=== PATIENT | male | born 1970 | race Hispanic/Latino ===

== ENCOUNTER 2016-11-09 12:05 | Inpatient (IN) | payer OTHER ==
[~2016-11-09] VITALS: Ht 167.6 cm; Wt 104.3 kg
--- NOTE | 2016-11-09 10:45 | NUR ---
RECHECK BP 198/118; DR. ABHILASH ARAUJO NOTIFIED; PER MD RECHECK IN 30MINS AND NOTIFY MD IF STILL ELEVATED- REPORTED TO ON-COMING RN NOEL
[~2016-11-09 12:05] MED LIST: AMLODIPINE BESY10 M1 PO; COZAAR 100MG T100 MG PO; COZAAR100 M1 PO; LABETALOL HCL100 M1 PO; NORVASC 10MG10 MG PO; TRANDATE-NORMO100 MG PO; ZITHROMAX Z-PA250 M1 PO
--- NOTE | 2016-11-09 12:10 | NUR ---
46 Y/O MALE C/O HEADACHE SINCE YESTERDAY; STATES HE RAN OUT OF HIS B/P MEDS 1 MONTH AGO AND HAS NOT FOLLOWED UP WITH ANYONE TO REFILL SCRIPT. +N/V PER PATIENT.
--- NOTE | 2016-11-09 12:16 | NUR ---
RECIEVED TO ROOM 17. MANUAL B/P RECHECK DONE 240/120.
--- NOTE | 2016-11-09 12:17 | NUR ---
PT UNSURE OF WHAT MEDS HE WAS TAKING AT HOME FOR BLOOD PRESSURE, MED RECONCILIATION SHOWS LABETALOL 100 BID, LOSARTAN 100 BID AND AMLODIPINE 10 Q DAY
--- NOTE | 2016-11-09 12:35 | ED HEADACHE COMPLAINT ---
History of Present Illness General Chief Complaint: Headache Stated Complaint: DOE SINCE YES,PER PT "HIGH BP?,NO BP MEDS X 1 MNTH" Source: patient Exam Limitations: no limitations Vital Signs & Intake/Output Vital Signs & Intake/Output Vital Signs Date Time Temp Pulse Resp B/P B/P Pulse O2 O2 Flow FiO2 Mean Ox Delivery Rate 11/09 1746 97.2 74 16 164/96 97 Room Air 11/09 1647 96.9 71 16 160/92 98 Room Air 11/09 1550 89 190/110 11/09 1458 85 186/106 11/09 1429 97.0 85 16 186/106 98 Room Air 11/09 1358 79 200/100 11/09 1329 79 200/100 11/09 1256 77 240/120 11/09 1242 Room Air 11/09 1219 240/120 11/09 1208 97.2 77 16 232/151 96 Room Air Allergies Coded Allergies: NO KNOWN ALLERGIES (02/01/16) Reconcile Medications Amlodipine Besylate 10 MG TABLET 1 TAB PO DAILY HTN Labetalol HCl 100 MG TABLET 1 TAB PO BID HTN Losartan (Cozaar) 100 MG TABLET 1 TAB PO DAILY HTN Triage Note: 46 Y/O MALE C/O HEADACHE SINCE YESTERDAY; STATES HE RAN OUT OF HIS B/P MEDS 1 MONTH AGO AND HAS NOT FOLLOWED UP WITH ANYONE TO REFILL SCRIPT. +N/V PER PATIENT. Triage Nurses Notes Reviewed? yes Onset: Abrupt Duration: hour(s): Timing: single episode today Quality/Severity: moderate, constant, pressure Severity Numbers: 9 Head Injury Location: temporal, occipital No Modifying Factors: none Associated Symptoms: chest tightness HPI: 46-year-old male with a history of hypertension presents for evaluation of headache the past 2 days. Patient reports that he has not taken his blood pressure medication in over a month since he ran out. Headache started gradually 2 days ago and has been worsening. Patient states this is the worst headache of his life and his rates the pain as a 9 out of 10. Pain is located in the bilateral temporal and occipital part of his head and does not radiate. He is tried taking Tylenol without any improvement. Additionally patient reports associated chest tightness. Tightness is located in the center of his chest and does not radiate he rates pain as a 3 out of 10. He reports a chest tightness started around 10 AM this morning has not been worsening. There are no alleviating or aggravate factors. He denies hemoptysis, shortness of breath, changes in vision, nausea, vomiting, back pain, fever, urinary symptoms, abdominal pain. (DEMETRICE SINHA PA-C) Past History Travel History Traveled to [place] past 21 day No Medical History Any Pertinent Medical History? 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 Yes (DEMETRICE SINHA PA-C) Review of Systems Review of Systems Constitutional: Reports: no symptoms. Eyes: Reports: no symptoms. Ears, Nose, Throat, Mouth: Reports: no symptoms. Respiratory: Reports: no symptoms. Cardiovascular: Reports: see HPI, chest pain. Gastrointestinal/Abdominal: Reports: no symptoms. Genitourinary: Reports: no symptoms. Musculoskeletal: Reports: no symptoms. Skin: Reports: no symptoms. Neurological/Psychological: Reports: see HPI, headache. Hematologic/Endocrine: Reports: no symptoms. Endocrine: Reports: no symptoms. Immunologic/Allergic: Reports: no symptoms. All Other Systems: Reviewed and Negative (DEMETRICE SINHA PA-C) Physical Exam Physical Exam General Appearance: well developed/nourished, no apparent distress, alert, awake Head: atraumatic, normal appearance Eyes: Bilateral: normal appearance, PERRL, EOMI. Ears, Nose, Throat: normal pharynx, normal ENT inspection, hearing grossly normal Neck: normal inspection, supple, full range of motion Respiratory: normal breath sounds, chest non-tender, no respiratory distress, lungs clear Cardiovascular: regular rate/rhythm, normal peripheral pulses Gastrointestinal: normal bowel sounds, soft, non-tender, no organomegaly Back: normal inspection, normal range of motion, no vertebral tenderness Extremities: normal inspection, normal capillary refill, normal range of motion, no edema Psychiatric: awake, alert, oriented x 3 Cranial Nerves: normal hearing, normal speech, PERRL Coordination/Gait: normal finger to nose, normal gait Motor/Sensory: no motor/sensory deficits Skin: intact, normal color, warm/dry Lymphatic: no anterior cervical tree Core Measures Severe Sepsis Present: No Septic Shock Present: No (DEMETRICE SINHA PA-C) Progress Differential Diagnosis: cluster DOE, IC mass/tumor, intracranial Hem., migraine DOE, subarach. Hem., tension DOE, temporal arteritis, TMJ syndrome, hypertensive urgency Plan of Care: Orders Procedure Date/time Status Heart Healthy Diet 11/10 B Active TROPONIN LEVEL 11/09 232 Active EKG 11/09 232 Active Vital Signs 11/10 1911 Active Teach/Educate 11/10 1911 Active Pain Treatment and Response 11/10 1911 Active Nutritional Intake, Monitor 11/10 1911 Active Isolation 11/10 1911 Active Intake & Output 11/10 1911 Active Patient Care Conference 11/10 1911 Active Activity/Ambulation 11/09 191 Active ECHOCARDIOGRAM 11/09 1723 Active TROPONIN LEVEL 11/09 1722 Complete EKG 11/09 1722 Active Pathway - chart 11/09 1720 Active TRC EVALUATION (GEN) 11/09 1718 Active OXYGEN SETUP (GEN) 11/09 1718 Active Pathway - chart 11/09 1718 Active House Staff 11/09 1718 Active Patient Data 11/09 1718 Active Code Status 11/09 1718 Active ED Holding Orders 11/09 1702 Active Admit to inpatient 11/09 1702 Active Vital Signs 11/09 1702 Active Code Status 11/09 1702 Complete Patient Data 11/09 1554 Active Telemetry/Mirror Polisher 11/09 1227 Active URINALYSIS 11/09 1227 Complete TROPONIN LEVEL 11/09 1227 Complete COMPREHENSIVE METABOLIC PANEL 11/09 1227 Complete CBC WITHOUT DIFFERENTIAL 11/09 1227 Complete EKG 11/09 1227 Active Intake & Output 11/09 1218 Active VTE Mechanical Prophylaxis 11/09 UNK Active Vital Signs 11/09 UNK Active MISTAKE 11/09 UNK Active Telemetry/Mirror Polisher 11/09 UNK Active Intake & Output 11/09 UNK Active Current Medications Sig/Abe Start time Last Medication Dose Stop Time Status Admin Atorvastatin Calcium 40 MG 1700 11/10 1700 AC (Lipitor) Aspirin 81 MG DAILY 11/10 1000 AC (Aspirin) Labetalol HCl 100 MG BID 11/09 2200 AC (Trandate) Nitroglycerin 0.4 MG ONCE PRN 11/09 1800 AC (Nitrostat) Acetaminophen 650 MG Q6P PRN 11/09 1730 AC (Tylenol) Hydralazine HCl 2.5 MG ONCE ONE 11/09 1645 CAN (Apresoline) 11/09 1646 Hydralazine HCl 10 MG ONCE ONE 11/09 1630 CAN (Apresoline) 11/09 1631 Laboratory Tests 11/09/16 1748: Troponin I < 0.01 11/09/16 1538: Urine Color YEL, Urine Clarity CLEAR, Urine pH 6.5, Ur Specific [place] 1.020, Urine Protein 100 H, Urine Ketones NEG, Urine Nitrite NEG, Urine Bilirubin NEG, Urine Urobilinogen 0.2, Ur Leukocyte Esterase NEG, Ur Microscopic SEDIMENT EXAMINED, Urine RBC 10-15 H, Urine WBC 3-5 H, Ur Epithelial Cells FEW, Urine Bacteria FEW H, Urine Mucus FEW, Urine Hemoglobin TRACE-LYSED H, Urine Glucose NEG 11/09/16 1235: Anion Gap 12, Estimated GFR > 60, BUN/Creatinine Ratio 10.0, Glucose 103 H, Calcium 9.9, Total Bilirubin 0.7, AST 25, ALT 33, Alkaline Phosphatase 90, Troponin I < 0.01, Total Protein 8.0, Albumin 4.7, Globulin 3.3, Albumin/ Globulin Ratio 1.4, CBC w Diff NO MAN DIFF REQ, RBC 5.47, MCV 78.3 L, MCH 26.3 L, RDW 13.9, MPV 8.9, Gran % 85.5 H, Lymphocytes % 8.3 L, Monocytes % 5.8, Eosinophils % 0.3, Basophils % 0.1, Absolute Granulocytes 9.1 H, Absolute Lymphocytes 0.9 L, Absolute Monocytes 0.6, Absolute Eosinophils 0, Absolute Basophils 0, PUBS MCHC 33.6 1255pm: Patient seen and evaluated. Blood pressure was 240/120. Patient will be given 20 mg of labetalol IV in attempt to bring down his blood pressure and resolve his headache. Patient initially will have a CT scan of his head, EKG and cardiac workup. Will follow-up on results. 1:50 PM 20 mg of IV labetalol brought blood pressure to 200/100. Patient be given an additional 10 mg of IV hydralazine in an attempt to lower his blood pressure. Patient is having symptomatically hypertensive urgency and will likely need to be admitted to telemetry for additional monitoring. 2:39 PM: Blood pressure came down to 186/106 after 10 of hydralazine. Heart rate is maintaining in the 70s and 80s. Patient will get another 10 of labetalol. Cardiology will be paged to admit the patient under telemetry. Blood work so far is within normal limits. Troponin is negative. 3:[address] King from cardiology who will consult on the patient while he is admitted. Current allergies reports that the pressures in the 180s over low 100s are okay holding point for now. Called hospitalist who will admit the patient. Put out a page to MOD. Patient is to be admitted for serial labs, serial blood pressure measurements, telemetry monitoring IV medications, medication adjustment, cardiology referral.pT GIVEN 2MG IF iv MORPHINE FOR PAIN CONTROL. (ERNESTINE VIZCAINO,DEMETRICE) Diagnostic Imaging: Viewed by Me: CT Scan. Initial ED EKG: nsr, PROBABLE LEFT ATRIAL ABN, LVH WITH REPOLARIZATION ABN, ANT Q WAVES Prior EKG: unchanged Comments: PATIENT: KRISTIE LAWSON PRESENT AGE: 46 PATIENT ACCOUNT NO: [id number] : 70 LOCATION: [facility] ORDERING PHYSICIAN: DEMETRICE SINHA PA-C SERVICE DATE: 11/09/16 EXAM TYPE: CAT - CT HEAD WO IV CONTRAST EXAMINATION: CT HEAD WITHOUT CONTRAST CLINICAL INFORMATION: Headache, hypertensive crisis COMPARISON: 02/01/2016 CT scan TECHNIQUE: Contiguous axial imaging was performed from the skull base to vertex without intravenous administration of contrast. DLP: 625.11 mGy-cm FINDINGS: There is no evidence of acute intracranial hemorrhage or territorial infarction. No abnormal mass effect or midline shift is seen. Baltazar to white matter differentiation is well preserved. No extra-axial fluid collections are identified. The ventricles are normal in size. There is no abnormal attenuation within the brain parenchyma. The osseous structures and soft tissues are normal. The mastoid air cells and visualized portions of the paranasal sinuses are well aerated. IMPRESSION: No acute intracranial hemorrhage. DICTATED BY: JOHNNY FERRARI MD DATE/TIME DICTATED:11/09/161320 CONTACT CENTER AGENT:SARAH DATE/TIME TRANSCRIBED:06/21/17 / 1321 CONFIDENTIAL, DO NOT COPY WITHOUT APPROPRIATE AUTHORIZATION. <Electronically signed in Other Vendor System> SIGNED BY: JOHNNY FERRARI MD 11/09/16 8527 (DEMETRICE SINHA PA-C) Departure Departure Disposition: STILL A PATIENT Condition: Stable Clinical Impression Primary Impression: Hypertensive urgency Referrals: PATIENT HAS NO PRIMARY CARE DR (PCP/Family) Departure Forms: Customer Survey General Discharge Information Admission Note Spoke With: JOSE DE JESUS LOCKHART,SULEIMAN Documentation of Exam: Documentation of any treatments & extenuating circumstances including Concerns Regarding Discharge (functional status, medication knowledge or non-compliance, living conditions, etc.) that warrant an admission rather than observation: Patient requires admission for symptomatically hypotensive urgency. He will require cardiology consult, telemetry monitoring, serial blood pressure and vital sign monitoring, IV blood pressure control, medication adjustment. (DEMETRICE SINHA PA-C) PA/ACCOUNTING CLERK Co-Sign Statement Statement: ED Attending supervision documentation- [] I saw and evaluated the patient. I have also reviewed all the pertinent lab results and diagnostic results. I agree with the findings and the plan of care as documented in the PA's/ACCOUNTING CLERK's documentation. [X] I have reviewed the ED Record and agree with the PA's/ACCOUNTING CLERK's documentation. [] Additions or exceptions (if any) to the PAs/ACCOUNTING CLERK's note and plan are summarized below: [] (RICKI AVILA DO
--- NOTE | 2016-11-09 12:42 | NUR ---
EKG DONE, LABS DRAWN. IV STARTED.
--- NOTE | 2016-11-09 12:47 | NUR ---
DEMETRICE SINHA PA IN TO SEE PT
[2016-11-09 12:51] LABS: ABSOLUTE BASOPHIL COUNT 0 /CUMM (0.0-0.2); ABSOLUTE EOSINOPHIL COUNT 0 /CUMM (0.0-0.7); ABSOLUTE GRANULOCYTE CT 9.1 /CUMM (1.4-6.5); ABSOLUTE LYMPH COUNT 0.9 /CUMM (1.2-3.4); ABSOLUTE MONOCYTE COUNT 0.6 /CUMM (0.10-0.60); BASOPHIL % 0.1 % (0.0-2.0); EOSINOPHIL % 0.3 % (0-5); HEMATOCRIT 42.8 % (42-52); MEAN CORPUSCULAR HGB 26.3 PG (27.0-31.0); MEAN CORPUSCULAR HGB CONC 33.6 G/DL (33.0-37.0); MEAN CORPUSCULAR VOLUME 78.3 FL (80.0-94.0); MEAN PLATELET VOLUME 8.9 FL (7.4-10.4); PLATELET COUNT 244 /CUMM (130-400); RBC DISTRIBUTION WIDTH 13.9 % (11.5-14.5); RED BLOOD CELL CT 5.47 /CUMM (4.70-6.10); WHITE BLOOD CELL COUNT 10.6 /CUMM (4.8-10.8)
--- NOTE | 2016-11-09 12:56 | NUR ---
PT TAKEN TO CT SCAN. DEMETRICE BLACK STATES PT CAN GO UNMONITORED FOR PROCEDURE
[2016-11-09 13:07] LABS: GRANULOCYTE % 85.5 % (42.2-75.2)
--- NOTE | 2016-11-09 13:29 | NUR ---
MINIMAL IMPROVEMENT IN BLOOD PRESSURE AFTER GETTING LABETALOL 20MG. CONTINUES TO HAVE HEAD ACHE
--- NOTE | 2016-11-09 13:30 | CT SCAN REPORT ---
EXAMINATION: CT HEAD WITHOUT CONTRAST CLINICAL INFORMATION: Headache, hypertensive crisis COMPARISON: 02/01/2016 CT scan TECHNIQUE: Contiguous axial imaging was performed from the skull base to vertex without intravenous administration of contrast. DLP: 625.11 mGy-cm FINDINGS: There is no evidence of acute intracranial hemorrhage or territorial infarction. No abnormal mass effect or midline shift is seen. Baltazar to white matter differentiation is well preserved. No extra-axial fluid collections are identified. The ventricles are normal in size. There is no abnormal attenuation within the brain parenchyma. The osseous structures and soft tissues are normal. The mastoid air cells and visualized portions of the paranasal sinuses are well aerated. IMPRESSION: No acute intracranial hemorrhage.
--- NOTE | 2016-11-09 14:12 | NUR ---
MEDICATED WITH IV HYDRALAZINE
--- NOTE | 2016-11-09 14:30 | NUR ---
BLOOD PRESSURE 186/106 AFTER HYDRALAZINE
--- NOTE | 2016-11-09 14:42 | NUR ---
PT INFORMED OF PLAN TO BE ADMITTED TO HOSPITAL FOR BLOOD PRESSURE CONTROL
--- NOTE | 2016-11-09 14:58 | NUR ---
PT RESTING QUIETLY ON STRETCHER
--- NOTE | 2016-11-09 14:58 | NUR ---
MEDICATED WITH ADDITIONAL 10MG LABETALOL FOR CONTINUED HTN
--- NOTE | 2016-11-09 15:42 | NUR ---
URINE TRIO SENT TO LAB
--- NOTE | 2016-11-09 15:56 | NUR ---
SITTING ON EDGE OF BED, EATING LUNCH. CONTINUES TO HAVE SEVERE HEADACHE. MEDICATED WITH MORPHINE 2MG
--- NOTE | 2016-11-09 16:31 | NUR ---
HOUSE STAFF IN TO SEE PT
--- NOTE | 2016-11-09 16:58 | History & Physical ---
ANDRADE LOCKHART,CURT 11/09/16 5951: General Information and HPI MD Statement: I have seen and personally examined KRISTIE LAWSON and documented this H&P. The patient is a 46 year old M who presented with a patient stated chief complaint of []. Source of Information: patient Exam Limitations: no limitations History of Present Illness: Patient is a 46-year-old male, presented with chief complaints of headache, nausea and vomiting since couple of days Patient claimed that he run out of his blood pressure medication since one year and has not followed any PCP for it. He was on labetalol 100 mgs twice a day, losartan 100 mgs twice a day, amlodipine 10 mgs once a day. He has very high threshold for pain. He had intermittent episodes of headaches which usually relieved by taking pain medication including Tylenol. Yesterday, he had very severe episode of headache located on the occipital part of the head for which he took 1000 mgs of Tylenol with mild relief, so he was here. He denies blurry vision, chest pain, shortness of breath, abdominal pain, dysuria. Blood pressure in the emergency was 240/120. He was given 20 milligrams of IV labetalol , which decreased blood pressure to 200/100 , followed 10 milligram of IV hydralazine. Blood pressure brought down to 186/106 Off note, patient was also complaining of increased frequency of urination since couple of days and he had an episode of dark urine possible hematuria in the past for which he never followed any PCP. Past medical history- History of chest pain December 2012 History of syncope June 2012 Hypertension, noncompliant with medication, history of hypertensive emergency ( 2015) History of community-acquired pneumonia(2016) History of right ankle fracture status post hardware Personal history -Worked at the [employer], denies smoking and illicit drug abuse,use of alcohol socially. 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 Cardiovascular: Reports: chest pain. Respiratory: Reports: short of breath. Neurological/Psychological: Reports: headache. Exam & Diagnostic Data Last 24 Hrs of Vital Signs/I&O Vital Signs Date Time Temp Pulse Resp B/P B/P Pulse O2 O2 Flow FiO2 Mean Ox Delivery Rate 11/09 1647 96.9 71 16 160/92 98 Room Air 11/09 1550 89 190/110 11/09 1458 85 186/106 11/09 1429 97.0 85 16 186/106 98 Room Air 11/09 1358 79 200/100 11/09 1329 79 200/100 11/09 1256 77 240/120 11/09 1242 Room Air 11/09 1219 240/120 11/09 1208 97.2 77 16 232/151 96 Room Air Intake & Output 11/09 1600 11/09 0800 11/09 0000 Intake Total Output Total Balance Patient 102.058 kg Weight Weight Reported by Patient Measurement Method Physical Exam General Appearance Alert, Oriented X3, Cooperative, No Acute Distress Cardiovascular Normal S1, Normal S2, No Murmurs Lungs Clear to Auscultation, Normal Air Movement Abdomen Soft, distended Assessment/Plan Assessment: Patient is a 46-year-old male, presented with chief complaints of progressive intermittent headache, nausea and vomiting since couple of days. Vital signs at the time of admission-temperature 97.2, pulse 77, respiratory rate 16, blood pressure 232/152, SPO2 96% on room air Pertinent labs -MCV 78.3, granulocyte-85.5,k-3.4, urine protein-100, RBC-10-15, WBC 3-5, CT scan of the head-no acute intracranial hemorrhage. Echo 2015 - Normal size left ventricle.LVEF >60%. No obvious regional wall motion abnormalities. Mild concentric LVH. Assessment and plan - Patient has history of hypertension and was off the medication since last 1 year.probably leading to severe rebound hypertension, presented with severe headache with nausea and vomiting. It seems hypertensive emergency, but CT scan does not show done in evidence of ischemic or HEMORRHAGE. Blood workup showed hypokalemia and troponins is negative. Blood pressure in the emergency was 240/ 120. He was given 20 milligrams of IV labetalol , which decreased blood pressure to 200/100 , followed by 10 milligram of IV hydralazine. Blood pressure brought down to 186/106. Plan Hypertensive emergency * We'll admit the patient to telemetry floor * We will do serial EKGs and troponins * We will keep the blood pressure in the range of 180/100. * Patient is also complaining of chest pain, if needed, We will consider nitroglycerin patch. * Patient is already given IV hydralazine and labetalol. We will continue all medication including -amlodipine 10 mgs, labetalol 100 mgs. * Neuro check every 4, as patient is complaining of headache Chest pain, ruling out aortic dissection He is also complaining of chest pain which was nonradiating, mild to moderate in nature and relieved by morphine. It was associated with mild shortness of breath. * We will do CT angiogram to rule out aortic dissection and if it is positive, then we will transfer the patient to [place]. * We will start him on aspirin and high-dose atorvastatin. Hypokalemia - K -3.4 * We will supplement the potassium and regularly monitor Hematuria/proteinuria Patient was given an episodes of dark red urine in past. He did not followed any doctor for it. Today urinalysis is showing urine protein-100, RBC-10-15, WBC 3- 5. * We will consider ultrasound of abdomen to rule out nephrolithiasis/bladder stone. We will also consider renal angiogram to rule out renal artery stenosis. Diet-heart healthy diet, low salt intake DVT prophylaxis-ALP S, we will avoid heparin because patient has very high blood pressure. CODE STATUS-full code As Ranked By This Provider Problem List: 1. Hypertensive emergency Core Measures/Miscellaneous Acute Coronary Syndrome ACS Diagnosis: No Cerebrovascular Accident CVA/TIA Diagnosis: No Congestive Heart Failure CHF Diagnosis: No VTE (View Protocol) VTE Risk Factors: Age > 40 [facility] prophylaxis d/t: No contraindications No VTE Pharm Prophylaxis d/t: No contraindications VTE Diagnosis: No VTE Type: NONE VTE Confirmed by (Test): NONE Sepsis (View Protocol) Severe Sepsis Present: No Septic Shock Septic Shock Present: No Miscellaneous Documentation Attending Case Discussed With: Dr. Flores Primary Care Physician: PATIENT HAS NO PRIMARY CARE DR Patient sees these Specialists Not applicable Level of Patient Care: Telemetry KEEGAN NULL 11/09/16 1723: Resident Review Statement Resident Statement: examined this patient, discussed with international relations professor, agreed with international relations professor Other Findings: This is a 46-year-old gentleman with past medical history significant for hypertension noncompliant with medications who presented to the hospital with worsening of headache for the past 2 days. Per patient, he hasn't taken his antihypertensives for almost a year; he does not follow with any PCP. He also reports exertional dyspnea, had chest tightness upon presentation to the ED which improved after receiving morphine. Upon presentation to the ED was noted to have blood pressure elevated to 240s systolic over 120s diastolic. He received 10 mg IV labetalol 1, 20 mg IV labetalol 1 and 10 mg IV hydralazine 1. Blood pressure improved to systolic 180s-diastolic 100. Physical exam at the time of admission: Vital signs: Temperature 97, pulse rate 89, RR 16, blood pressure 190/110, oxygen saturation 98% on room air. NAD, AAO cardiovascular: RRR, no murmur. Abdomen: Normal bowel sounds, soft, NT, ND. Bilateral Lower extremities edema noted. Neurology: Cranial nerves 3-12 intact, normal ophthalmoscopy exam without papilledema, normal reflexes, normal sensation. Labs significant for potassium level of 3.4, otherwise unremarkable. Negative troponin. Head CT negative. EKG on admission shows sinus rhythm, rate 86, T-wave inversion in V1, V2, V3, V4 , V5, V6. ? ST elevation V2 V3. 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 * Monitor blood pressure closely target systolic is 160s -180s for the first 24 hours * Potassium refuses, recheck levels tomorrow, maintain potassium above 4. * DVT prophylaxis at all times * Patient is full code *Update 7:30 PM; patient reported worsening headache and chest pain. Second set of EKGs showing worsening of T-wave inversions in V1, V2, V3, V4, V5, V6. Blood pressure 190/110 otherwise Physical exam unchanged from admission. Patient had received 100 mg of by mouth labetalol. Discussed the case with ultrasound tech on- call, Dr. King via phone who recommends to administer 20 mg IV labetalol 1 and ordered a CTA to rule out aortic dissection. Will monitor the patient closely. JOSE DE JESUS LOCKHART,SULEIMAN 11/10/16 1127: Attending MD Review Statement Attending Statement Attending MD Statement: examined this patient, discuss w/resident/PA/WEDDING FLORIST, agreed w/resident/PA/WEDDING FLORIST, reviewed EMR data (avail) Attending Assessment/Plan: Patient was seen and examined in the emergency room. Patient is 46-year-old hypertensive for been has not taken his blood pressure medication in months since with the chest pressure and headache. His initial troponin was negative however his EKG showed lateral T-wave inversions. Patient is to be ruled out for AR given his symptoms and EKG changes. His blood pressure was about 190 systolic and therefore requires close monitoring. He required IV antihypertensive medication portion the emergency room. Assessment * Hypertensive urgency * Headache likely from elevated BP * Chest pain rule out AR * Mild hypokalemia * EKG changes Plan * Admit to telemetry * Rule out AR protocol * Continue losartan, labetalol and Norvasc. * Continue Lipitor * Repeat EKG tomorrow
--- NOTE | 2016-11-09 17:13 | NUR ---
PT HAS BED [id number]
[2016-11-09 19:00] VITALS: BP 190/110
--- NOTE | 2016-11-09 19:45 | Event Note ---
Event Note Event Note: Patient reported worsening headache and chest pain. Second set of EKGs showing worsening of T-wave inversions in V1, V2, V3, V4, V5, V6. Blood pressure 190/ 110 otherwise Physical exam unchanged from admission. Patient had received 100 mg of by mouth labetalol. Discussed the case with standards analyst on-call, Dr. King via phone who recommends to administer 20 mg IV labetalol 1 and ordered a CTA to rule out aortic dissection. Received 325 mg ASA on admission, to be started on low dose ASA from tomorrow AM. Sign out was given to the night team. Attending, Dr. Bernal made aware.
--- NOTE | 2016-11-09 20:56 | CT SCAN REPORT ---
EXAMINATION: CT ANGIOGRAM CHEST CLINICAL INFORMATION: Chest discomfort. Hypertension. COMPARISON: Chest x-ray 06/04/2015 TECHNIQUE: Noncontrast axial images obtained through the chest. Multiple axial images were obtained through the chest following the administration of 95 mL of Optiray 320 intravenous contrast. Coronal and sagittal reformatted images performed at CT scanner. No 3-D imaging. DLP: 996.33 mGy-cm. FINDINGS: VASCULAR: The thoracic aorta is normal. There is no dissection. There is no aneurysm. There is mild atherosclerotic vascular wall calcifications of the aortic arch. There is normal enhancement of the major branch vessels at the thoracic aortic arch. The pulmonary arteries are well opacified. No evidence of central pulmonary embolism. CT CHEST: MEDIASTINUM: No mediastinal mass. No significant lymphadenopathy. There is no pericardial effusion. LUNGS: 3 mm subpleural nodule anterior chest at right middle lobe, axial image 36 (3). Linear scarring of left lung base at the left lower lobe. No acute infiltrate. Central bronchial airways are open. No bronchiectasis. FLUID: There is no pericardial effusion. There is no pleural effusion. AXILLA: No significant lymphadenopathy. UPPER ABDOMEN: Unremarkable. OSSEOUS STRUCTURES: Mild multilevel degenerative spondylosis of dorsal spine. IMPRESSION: 1. No acute abnormality. No aortic dissection or aneurysm.
[2016-11-09 21:00] VITALS: BP 192/110
[2016-11-09 22:45] VITALS: BP 198/118
[2016-11-10] VITALS (10 sets, daily range): BP systolic 152–196; BP diastolic 80–120
--- NOTE | 2016-11-10 00:13 | Admission Certification ---
Admission Certification Certification Statement - As attending physician, I certify that at the time of - admission, based on clinical presentation, severity of - symptoms, need for further diagnostic testing and - therapeutic interventions, and risk of adverse outcomes - without in-hospital treatment, in my clinical assessment, - this patient requires an acute hospital stay for a minimum - of two nights or longer. I have also considered psychsocial - factors such as support system, advanced age, financial - issues, cognitive issues, and failed out-patient treatments, - past re-admission history, safety of patient, and lack of - compliance as applicable. Specific rationale supporting this admission is: uncontrolled HTN and chest pain
[2016-11-10 07:53] LABS: ABSOLUTE BASOPHIL COUNT 0 /CUMM (0.0-0.2); ABSOLUTE EOSINOPHIL COUNT 0.1 /CUMM (0.0-0.7); ABSOLUTE GRANULOCYTE CT 7.6 /CUMM (1.4-6.5); ABSOLUTE LYMPH COUNT 1.9 /CUMM (1.2-3.4); ABSOLUTE MONOCYTE COUNT 0.9 /CUMM (0.10-0.60); BASOPHIL % 0.4 % (0.0-2.0); EOSINOPHIL % 1.1 % (0-5); GRANULOCYTE % 71.4 % (42.2-75.2); HEMATOCRIT 39.4 % (42-52); MEAN CORPUSCULAR HGB 26.4 PG (27.0-31.0); MEAN CORPUSCULAR HGB CONC 33.2 G/DL (33.0-37.0); MEAN CORPUSCULAR VOLUME 79.4 FL (80.0-94.0); MEAN PLATELET VOLUME 9.4 FL (7.4-10.4); PLATELET COUNT 223 /CUMM (130-400); RBC DISTRIBUTION WIDTH 14.6 % (11.5-14.5); RED BLOOD CELL CT 4.96 /CUMM (4.70-6.10); WHITE BLOOD CELL COUNT 10.6 /CUMM (4.8-10.8)
--- NOTE | 2016-11-10 08:27 | PN- Housestaff ---
Subjective Follow-up For: Hypertensive emergency Complaints: Headaches Tele-Events Since Last Visit: Normal sinus rhythm, heart rate between 49-69, no any overnight events Subjective: Patient is seen and examined at the bedside. According to him, he slept well overnight without any complaint. In the morning he started having headaches and we found that the pressure was 190/110, we adjusted the antihypertensive tablet labetalol 100 milligrams to 200 milligrams twice a day, amlodipine 10 milligrams in the morning, started tablet losartan 50 milligrams once a day Review of Systems Constitutional: Reports: no symptoms. Neurological/Psychological: Reports: headache. Objective Last 24 Hrs of Vital Signs/I&O Vital Signs Date Time Temp Pulse Resp B/P B/P Pulse O2 O2 Flow FiO2 Mean Ox Delivery Rate 11/10 1600 98.2 65 20 184/110 97 Room Air 11/10 1315 60 172/116 11/10 1107 79 190/114 11/10 1107 79 190/114 11/10 1008 79 190/114 11/10 0829 97.9 74 18 184/110 95 Room Air 11/10 0819 69 196/120 11/10 0817 69 196/120 11/10 0312 152/90 11/10 0051 171/80 11/10 0046 98.4 74 16 178/108 96 Room Air 11/09 2245 78 198/118 11/09 2126 Room Air Room Air 11/09 2100 192/110 11/09 1956 64 190/110 11/09 1933 64 190/110 11/09 1900 99.1 76 18 190/110 97 Room Air Intake & Output 11/10 1600 11/10 0800 11/10 0000 Intake Total 900 320 340 Output Total 400 Balance 900 -80 340 Intake, IV 100 Intake, Oral 900 320 240 Output, Urine 400 Patient 104.326 kg Weight Weight Estimated Measurement Method Physical Exam General Appearance: Alert, Oriented X3, Cooperative, No Acute Distress Cardiovascular: Normal S1, Normal S2 Lungs: Clear to Auscultation, Normal Air Movement Abdomen: Soft, distended Neurological: Normal Speech Extremities: No Clubbing, No Cyanosis, No Edema Current Medications: Current Medications Sig/Abe Start time Last Medication Dose Route Stop Time Status Admin Acetaminophen 650 MG Q6P PRN 11/09 1730 AC 11/10 PO 1040 Amlodipine Besylate 10 MG DAILY 11/10 1000 AC 11/10 PO 1107 Aspirin 81 MG DAILY 11/10 1000 AC 11/10 PO 0819 Aspirin 325 MG ONCE ONE 11/09 1800 DC 11/09 PO 11/09 180 1933 Atorvastatin Calcium 40 MG 1700 11/10 1700 AC 11/10 PO 1700 Labetalol HCl 200 MG BID 11/10 2200 AC PO Labetalol HCl 100 MG ONCE ONE 11/10 1045 DC 11/10 PO 11/10 1046 1107 Labetalol HCl 100 MG BID 11/09 2200 DC 11/10 PO 0819 Labetalol HCl 20 MG ONCE ONE 11/09 1945 DC 11/09 IV 11/09 Losartan Potassium 50 MG DAILY@11/10 AC PO Morphine Sulfate 2 MG Q6P PRN 11/09 193 AC IV Nitroglycerin 0.4 MG ONCE PRN 11/09 1800 AC SL Potassium Chloride 40 MEQ ONCE ONE 11/10 1430 DC 11/10 PO 11/10 1431 1700 Last 24 Hrs of Lab/Jermaine Results Last 24 Hrs of Labs/Mics: Laboratory Tests 11/10/16 0626: Anion Gap 11, Estimated GFR > 60, BUN/Creatinine Ratio 17.3, CBC w Diff NO MAN DIFF REQ, RBC 4.96, MCV 79.4 L, MCH 26.4 L, RDW 14.6 H, MPV 9.4, Gran % 71.4, Lymphocytes % 18.3 L, Monocytes % 8.8, Eosinophils % 1.1, Basophils % 0.4, Absolute Granulocytes 7.6 H, Absolute Lymphocytes 1.9, Absolute Monocytes 0.9 H, Absolute Eosinophils 0.1, Absolute Basophils 0, PUBS MCHC 33.2 11/09/16 2345: Troponin I < 0.01 Assessment/Plan Assessment: Patient is a 46-year-old male, presented with chief complaints of progressive intermittent headache, nausea and vomiting since couple of days. Vital signs at the time of admission-temperature 97.2, pulse 77, respiratory rate 16, blood pressure 232/152, SPO2 96% on room air Pertinent labs -MCV 78.3, granulocyte-85.5,k-3.4, urine protein-100, RBC-10-15, WBC 3-5, CT scan of the head-no acute intracranial hemorrhage. Echo 2015 - Normal size left ventricle.LVEF >60%. No obvious regional wall motion abnormalities. Mild concentric LVH. Assessment and plan - Patient has history of hypertension and was off the medication since last 1 year.probably leading to severe rebound hypertension, presented with severe headache with nausea and vomiting. It seems hypertensive emergency, but CT scan does not show done in evidence of ischemic or HEMORRHAGE. Blood workup showed hypokalemia and troponins is negative. Blood pressure in the emergency was 240/ 120. He was given 20 milligrams of IV labetalol , which decreased blood pressure to 200/100 , followed by 10 milligram of IV hydralazine. Blood pressure brought down to 186/106. Plan Hypertensive emergency * We will continue telemetry monitoring * Serial EKGs did not show any new changes. Serial troponins were negative * We will keep the blood pressure in the range of 180/100. * Patient is also complaining of chest pain, if needed, We will consider nitroglycerin patch. * We increased dose of antihypertensive -Labetalol 200 milligrams twice a day, tablet amlodipine 10 milligrams OD, tablet losartan 50 milligrams once a day. * Neuro check every 4, as patient is complaining of headach Chest pain, ruling out aortic dissection * We will continue tablet aspirin and high-dose atorvastatin. * CT angiogram does not show any evidence of dissection of aorta Hypokalemia - K -3.3 * We will supplement with 40 milliequivalents of the potassium and regularly monitor Hematuria/proteinuria UA- urine protein-100, RBC-10-15, WBC 3-5. we will repeat UA * We will consider ultrasound of abdomen to rule out nephrolithiasis/bladder stone. We will also consider renal angiogram to rule out renal artery stenosis. Diet-heart healthy diet, low salt intake DVT prophylaxis-ALP S, we will avoid heparin because patient has very high blood pressure. CODE STATUS-full code Problem List: 1. Hypertensive emergency 2. Hematuria Pain Ratin Pain Location: Headache Pain Goal: Remain pain free Pain Plan: Avoid NSAIDs Tomorrow's Labs & Rationales: BEP for follow-up with electrolytes DVT/Prophylaxis: mechanical, pharmacological
--- NOTE | 2016-11-10 09:54 | ECHOCARDIOGRAM REPORT ---
KRISTIE LAWSON Age: 46 : 1970 Gender: M Exam Date: 11/09/2016 19:31 Exam Location: [address] Ht (in): 65 Wt (lb): 225 BSA: 2.21 BP: 160 / 92 Ordering Physician: LUISA NULL, Referring Physician: Marko Vargas M.D. Technologist: Jennifer Antonio [facility] Room Number: 185-02 Indications: HYPERTENSION Rhythm: Technical Quality: Fair FINDINGS Left Ventricle Left ventricular cavity size normal. Left ventricular wall thickness mild to moderately increased. No obvious regional wall motion abnormalities. Left ventricular ejection fraction is estimated at > 60 %. Right Ventricle Normal right ventricular size and function. Right Atrium Normal right atrial size. Left Atrium Mild left atrial dilatation. Mitral Valve Structurally normal mitral valve. Mild mitral regurgitation. Aortic Valve No aortic stenosis. Trileaflet aortic valve. Tricuspid Valve Structurally normal tricuspid valve. [id number] tricuspid regurgitation. Right ventricular systolic pressure estimated at 35 mmHg. Pulmonic Valve Pulmonic valve not well visualized, grossly normal. Pericardium No pericardial effusion. Great Vessels Normal size aortic root and proximal ascending aorta. CONCLUSIONS Left ventricular cavity size normal. Left ventricular wall thickness mild to moderately increased. No obvious regional wall motion abnormalities. Left ventricular ejection fraction is estimated at > 60 %. Normal right ventricular size and function. Mild left atrial dilatation. [id number] tricuspid regurgitation. Right ventricular systolic pressure estimated at 35 mmHg. Normal size aortic root and proximal ascending aorta. Sonny Hercules M.D. (Electronically Signed) Final Date: 10 November 2016 09:53 MEASUREMENTS (Male / Female) Normal Values 2D ECHO LV Diastolic Diameter PLAX 3.2 cm 4.2 - 5.9 / 3.9 - 5.3 cm LV Systolic Diameter PLAX 2.0 cm 2.1 - 4.0 cm LV Fractional Shortening PLAX 37.5 % 25 - 46 % LV Ejection Fraction 2D Teich 68.9 % IVS Diastolic Thickness 1.4 cm LVPW Diastolic Thickness 1.4 cm LV Relative Wall Thickness 0.9 RV Internal Dim ED PLAX 2.4 cm 1.9 - 3.8 cm LVOT Diameter 2.0 cm Aortic Root Diameter 3.2 cm LA Systolic Diameter LX 4.4 cm 3.0 - 4.0 / 2.7 - 3.8 cm LA Volume 38.0 cm 18 - 58 / 22 - 52 cm Ascending Aorta Diameter 3.1 cm DOPPLER AV Peak Velocity 178.0 cm/s AV Peak Gradient 12.7 mmHg AV Mean Velocity 121.0 cm/s AV Mean Gradient 7.0 mmHg AV Velocity Time Integral 34.2 cm LVOT Peak Velocity 161.0 cm/s LVOT Peak Gradient 10.4 mmHg LVOT Mean Velocity 107.0 cm/s LVOT Mean Gradient 6.0 mmHg LVOT Velocity Time Integral 29.9 cm LVOT Stroke Volume 93.9 cm AV Area Cont Eq vti 2.7 cm AV Area Cont Eq pk 2.8 cm MV Peak Velocity 126.0 cm/s MV Peak Gradient 6.4 mmHg MV Mean Velocity 77.2 cm/s MV Mean Gradient 3.0 mmHg Mitral E Point Velocity 101.0 cm/s Mitral A Point Velocity 106.0 cm/s Mitral E to A Ratio 1.0 MV PHT Velocity 127.0 cm/s MV Deceleration [place] 390.0 cm/s MV Pressure Half Time 97.7 ms MV Area PHT 2.3 cm MV Deceleration Time 304.0 ms TR Peak Velocity 248.0 cm/s TR Peak Gradient 24.6 mmHg Right Atrial Pressure 5.0 mmHg Pulmonary Artery Systolic Pressu 29.6 mmHg Right Ventricular Systolic Press 29.6 mmHg PV Peak Velocity 120.0 cm/s PV Peak Gradient 5.8 mmHg PV Mean Velocity 81.3 cm/s PV Mean Gradient 3.0 mmHg PV Velocity Time Integral 24.7 cm LV E' Lateral Velocity 7.5 cm/s Mitral E to LV E' Lateral Ratio 13.5 LV E' Septal Velocity 7.2 cm/s Mitral E to LV E' Septal Ratio 14.0
--- NOTE | 2016-11-10 11:33 | PN- Att Addend ---
Attending Addendum Attending Brief Note Patient seen and examined. Plan of care discussed with the medical team and the patient. Available lab work and radiology test reports were reviewed. Events of last night were noted. Patient had recurrent symptoms of chest pressure and headache and he underwent a CTA which was negative for any dissection of aorta. This morning is complaining of occipital headache but denies any chest pain or palpitation or difficulty breathing. Vital Signs Date Time Temp Pulse Resp B/P B/P Pulse O2 O2 Flow FiO2 Mean Ox Delivery Rate 11/10 1107 79 190/114 11/10 1107 79 190/114 11/10 1008 79 190/114 11/10 0829 97.9 74 18 184/110 95 Room Air 11/10 0819 69 196/120 11/10 0817 69 196/120 11/10 0312 152/90 11/10 0051 171/80 11/10 0046 98.4 74 16 178/108 96 Room Air 11/09 2245 78 198/118 11/09 2126 Room Air Room Air 11/09 2100 192/110 11/09 1956 64 190/110 11/09 1933 64 190/110 11/09 1900 99.1 76 18 190/110 97 Room Air 11/09 1746 97.2 74 16 164/96 97 Room Air 11/09 1647 96.9 71 16 160/92 98 Room Air 11/09 1550 89 190/110 11/09 1458 85 186/106 11/09 1429 97.0 85 16 186/106 98 Room Air 11/09 1358 79 200/100 11/09 1329 79 200/100 11/09 1256 77 240/120 11/09 1242 Room Air 11/09 1219 240/120 11/09 1208 97.2 77 16 232/151 96 Room Air Intake & Output 11/10 1600 11/10 0800 11/10 0000 Intake Total 320 340 Output Total 400 Balance -80 340 Intake, IV 100 Intake, Oral 320 240 Output, Urine 400 Patient 230 lb Weight Weight Estimated Measurement Method Exam: General: Patient awake alert oriented without any distress CVS: S1 plus S2 without any murmur or gallops Chest: Few scattered crepitation without any wheeze. There is no respiratory distress. Abdomen: Soft nontender, bowel sound present, no guarding or rebound HAND II BLOCKER: Awake alert oriented without any focal neuro deficit and follows command appropriately Extremities: No edema; no clubbing or cyanosis noted Laboratory Tests 11/10 11/09 11/09 0626 2345 1748 Chemistry Sodium (137 - 145 mmol/L) 137 Potassium (3.5 - 5.1 mmol/L) 3.3 L Chloride (98 - 107 mmol/L) 97 L Carbon Dioxide (22 - 30 mmol/L) 29 Anion Gap (5 - 16) 11 BUN (9 - 20 mg/dL) 19 Creatinine (0.7 - 1.2 mg/dL) 1.1 Estimated GFR (>60 ml/min) > 60 BUN/Creatinine Ratio (7 - 25 %) 17.3 Troponin I (<0.11 ng/ml) < 0.01 < 0.01 Hematology CBC w Diff NO MAN DIFF REQ WBC (4.8 - 10.8 /CUMM) 10.6 RBC (4.70 - 6.10 /CUMM) 4.96 Hgb (14.0 - 18.0 G/DL) 13.1 L Hct (42 - 52 %) 39.4 L MCV (80.0 - 94.0 FL) 79.4 L MCH (27.0 - 31.0 PG) 26.4 L RDW (11.5 - 14.5 %) 14.6 H Plt Count (130 - 400 /CUMM) 223 MPV (7.4 - 10.4 FL) 9.4 Gran % (42.2 - 75.2 %) 71.4 Lymphocytes % (20.5 - 51.1 %) 18.3 L Monocytes % (1.7 - 9.3 %) 8.8 Eosinophils % (0 - 5 %) 1.1 Basophils % (0.0 - 2.0 %) 0.4 Absolute Granulocytes (1.4 - 6.5 /CUMM) 7.6 H Absolute Lymphocytes (1.2 - 3.4 /CUMM) 1.9 Absolute Monocytes (0.10 - 0.60 /CUMM) 0.9 H Absolute Eosinophils (0.0 - 0.7 /CUMM) 0.1 Absolute Basophils (0.0 - 0.2 /CUMM) 0 PUBS MCHC (33.0 - 37.0 G/DL) 33.2 11/09 11/09 1538 1235 Chemistry Sodium (137 - 145 mmol/L) 141 Potassium (3.5 - 5.1 mmol/L) 3.4 L Chloride (98 - 107 mmol/L) 99 Carbon Dioxide (22 - 30 mmol/L) 30 Anion Gap (5 - 16) 12 BUN (9 - 20 mg/dL) 10 Creatinine (0.7 - 1.2 mg/dL) 1.0 Estimated GFR (>60 ml/min) > 60 BUN/Creatinine Ratio (7 - 25 %) 10.0 Glucose (65 - 99 mg/dL) 103 H Hemoglobin A1c (4.2 - 5.8 %) 5.5 Calcium (8.4 - 10.2 mg/dL) 9.9 Total Bilirubin (0.2 - 1.3 mg/dL) 0.7 AST (17 - 59 U/L) 25 ALT (21 - 72 U/L) 33 Alkaline Phosphatase (< 127 U/L) 90 Troponin I (<0.11 ng/ml) < 0.01 Total Protein (6.3 - 8.2 g/dL) 8.0 Albumin (3.5 - 5.0 g/dL) 4.7 Globulin (1.9 - 4.2 gm/dL) 3.3 Albumin/Globulin Ratio (1.1 - 2.2 %) 1.4 Hematology CBC w Diff NO MAN DIFF REQ WBC (4.8 - 10.8 /CUMM) 10.6 RBC (4.70 - 6.10 /CUMM) 5.47 Hgb (14.0 - 18.0 G/DL) 14.4 Hct (42 - 52 %) 42.8 MCV (80.0 - 94.0 FL) 78.3 L MCH (27.0 - 31.0 PG) 26.3 L RDW (11.5 - 14.5 %) 13.9 Plt Count (130 - 400 /CUMM) 244 MPV (7.4 - 10.4 FL) 8.9 Gran % (42.2 - 75.2 %) 85.5 H Lymphocytes % (20.5 - 51.1 %) 8.3 L Monocytes % (1.7 - 9.3 %) 5.8 Eosinophils % (0 - 5 %) 0.3 Basophils % (0.0 - 2.0 %) 0.1 Absolute Granulocytes (1.4 - 6.5 /CUMM) 9.1 H Absolute Lymphocytes (1.2 - 3.4 /CUMM) 0.9 L Absolute Monocytes (0.10 - 0.60 /CUMM) 0.6 Absolute Eosinophils (0.0 - 0.7 /CUMM) 0 Absolute Basophils (0.0 - 0.2 /CUMM) 0 PUBS MCHC (33.0 - 37.0 G/DL) 33.6 Urines Urine Color (YEL,AMB,STR) YEL Urine Clarity (CLEAR) CLEAR Urine pH (5.0 - 8.0) 6.5 Ur Specific [place] (1.001 - 1.035) 1.020 Urine Protein (NEG,<30 MG/DL) 100 H Urine Ketones (NEG) NEG Urine Nitrite (NEG) NEG Urine Bilirubin (NEG) NEG Urine Urobilinogen (0.1 - 1.0 EU/dl) 0.2 Ur Leukocyte Esterase (NEG) NEG Ur Microscopic SEDIMENT EXAMINED Urine RBC (0 - 5 /HPF) 10-15 H Urine WBC (0 - 2 /HPF) 3-5 H Ur Epithelial Cells (NONE,FEW) FEW Urine Bacteria (NEG/NONE) FEW H Urine Mucus (FEW,NONE) FEW Urine Hemoglobin (NEG) TRACE-LYSED H Urine Glucose (N MG/DL) NEG Repeat EKG shows sinus rhythm with lateral T-wave inversions CTA did not show any dissection of aorta Echocardiogram Left ventricular cavity size normal. Left ventricular wall thickness mild to moderately increased. No obvious regional wall motion abnormalities. Left ventricular ejection fraction is estimated at > 60 %. Normal right ventricular size and function. Mild left atrial dilatation. [id number] tricuspid regurgitation. Right ventricular systolic pressure estimated at 35 mmHg. Normal size aortic root and proximal ascending aorta. Assessment * Hypertensive urgency * Headache likely from elevated BP * Chest pain rule out NC * Mild hypokalemia * EKG changes Plan * Continue losartan, labetalol and Norvasc. * Continue Lipitor * Cardiac consult * Continue to monitor on telemetry * Goal is to maintain systolic BP between 160-180
--- NOTE | 2016-11-10 12:47 | Cons- Cardiology ---
General Information and HPI Consulting Request Date of Consult: 11/10/16 Requested By: JOSE DE JESUS LOCKHART,SULEIMAN Reason for Consult: HTN urgency Source of Information: patient, old records History of Present Illness: This is a 46-year-old male with a past medical history of uncontrolled hypertension who admits to not having any outpatient medical follow-up and has not taken his blood pressure medications since his last hospitalization in 2015. He presents to [facility] with a chief complaint of intermittent moderate intensity headache which was not associated with any visual changes, slurring of speech, or focal weakness. He also noted some intermittent nonexertional chest discomfort without radiation to his arms or jaw. Denies any orthopnea or paroxysmal nocturnal dyspnea. Denies any associated palpitations. He denied taking Tylenol for pain control but denies using other NSAIDs. Denies smoking or illicit substance use. No recent changes in exertional tolerance. Denies recent syncope. Allergies/Medications Allergies: Coded Allergies: NO KNOWN ALLERGIES (02/01/16) Home Med List: Amlodipine Besylate 10 MG TABLET 1 TAB PO DAILY HTN Labetalol HCl 100 MG TABLET 1 TAB PO BID HTN Losartan (Cozaar) 100 MG TABLET 1 TAB PO DAILY HTN Current Medications: Current Medications Sig/Abe Start time Last Medication Dose Route Stop Time Status Admin Acetaminophen 650 MG Q6P PRN 11/09 1730 AC 11/10 PO 1040 Amlodipine Besylate 10 MG DAILY 11/10 1000 AC 11/10 PO 1107 Aspirin 81 MG DAILY 11/10 1000 AC 11/10 PO 0819 Aspirin 325 MG ONCE ONE 11/09 1800 DC 11/09 PO 11/09 1801 1933 Atorvastatin Calcium 40 MG 1700 11/10 1700 AC PO Hydralazine HCl 2.5 MG ONCE ONE 11/09 1645 CAN IV 11/09 1646 Hydralazine HCl 10 MG ONCE ONE 11/09 1630 CAN IV 11/09 1631 Hydralazine HCl 10 MG ONCE ONE 11/09 1400 DC 11/09 IV 11/09 1401 1358 Hydralazine HCl 0 .STK-MED ONE 11/09 1400 DC .ROUTE Labetalol HCl 200 MG BID 11/10 2200 AC PO Labetalol HCl 100 MG ONCE ONE 11/10 1045 DC 11/10 PO 11/10 1046 1107 Labetalol HCl 100 MG BID 11/09 2200 DC 11/10 PO 0819 Labetalol HCl 20 MG ONCE ONE 11/09 1945 DC 11/09 IV 11/09 1941955 Labetalol HCl 10 MG ONCE ONE 11/09 1500 DC 11/09 IV 11/09 1501 1458 Labetalol HCl 0 .STK-MED ONE 11/09 1250 DC IV Labetalol HCl 20 MG ONCE ONE 11/09 1245 DC 11/09 IV 11/09 1246 1256 Losartan Potassium 50 MG DAILY@2200 11/10 2200 AC PO Morphine Sulfate 2 MG Q6P PRN 11/09 1930 AC IV Morphine Sulfate 2 MG ONCE ONE 11/09 1600 DC 11/09 IV 11/09 1601 1556 Morphine Sulfate 0 .STK-MED ONE 11/09 1558 DC .ROUTE Nitroglycerin 0.4 MG ONCE PRN 11/09 1800 AC SL Potassium Chloride 0 .STK-MED ONE 11/09 1739 DC IV Potassium Chloride 10 MEQ ONCE ONE 11/09 1715 DC 11/09 IV 11/09 1716 1845 Review of Systems Review of Systems: Review of systems as per HPI. The remainder of a 10 point review of systems was reviewed and was otherwise negative. Past History Travel History Traveled to [place] past 21 day No Medical History Neurological: NONE EENT: NONE Cardiovascular: hypertension Respiratory: NONE Gastrointestinal: NONE Hepatic: NONE Renal: NONE Musculoskeletal: R ANKLE FX/SX/HDWE Psychiatric: NONE Endocrine: NONE Blood Disorders: NONE Cancer(s): NONE ON AIR TALENT/Reproductive: NONE Surgical History Surgical History: non-contributory Psychosocial History Where Do You Live? Home Services at Home: None Smoking Status: Former Smoker Exam & Diagnostic Data Vital Signs and I&O Vital Signs Date Time Temp Pulse Resp B/P B/P Pulse O2 O2 Flow FiO2 Mean Ox Delivery Rate 11/10 1107 79 190/114 11/10 1107 79 190/114 11/10 1008 79 190/114 11/10 0829 97.9 74 18 184/110 95 Room Air 11/10 0819 69 196/120 11/10 0817 69 196/120 11/10 0312 152/90 11/10 0051 171/80 11/10 0046 98.4 74 16 178/108 96 Room Air 11/095 78 198/118 11/096 Room Air Room Air 11/09 2100 192/110 11/09 1956 64 190/110 11/09 1933 64 190/110 11/09 1900 99.1 76 18 190/110 97 Room Air 11/09 1746 97.2 74 16 164/96 97 Room Air 11/09 1647 96.9 71 16 160/92 98 Room Air 11/09 1550 89 190/110 11/09 1458 85 186/106 11/09 1429 97.0 85 16 186/106 98 Room Air 11/09 1358 79 200/100 11/09 1329 79 200/100 11/09 1256 77 240/120 11/09 1242 Room Air Intake & Output 11/10 1600 11/10 0800 11/10 0000 11/09 1600 11/09 0800 11/09 0000 Intake Total 320 340 Output Total 400 Balance -80 340 Intake, IV 100 Intake, Oral 320 240 Output, Urine 400 Patient 230 lb 225 lb Weight Weight Estimated Reported by Patient Measurement Method Physical Exam: General: no apparent distress. Alert. Eyes: No obvious scleral icterus. HEENT: No jugular venous distention or abnormal jugular venous pulsations. Cardiovascular: Normal intensity S1/S2. PMI not grossly displaced. Respiratory: Lungs clear to auscultation bilaterally. Abdomen: Soft, nontender with no guarding or rebound tenderness. Musculoskeletal: No clubbing or cyanosis noted Skin: No obvious rashes or ulcerations. Neurologic: No gross focal deficits noted. Lymph: No gross lymphadenopathy. Labs/Jermaine Results: Laboratory Tests 11/10 11/09 11/09 0626 2345 1748 Chemistry Sodium (137 - 145 mmol/L) 137 Potassium (3.5 - 5.1 mmol/L) 3.3 L Chloride (98 - 107 mmol/L) 97 L Carbon Dioxide (22 - 30 mmol/L) 29 Anion Gap (5 - 16) 11 BUN (9 - 20 mg/dL) 19 Creatinine (0.7 - 1.2 mg/dL) 1.1 Estimated GFR (>60 ml/min) > 60 BUN/Creatinine Ratio (7 - 25 %) 17.3 Troponin I (<0.11 ng/ml) < 0.01 < 0.01 Hematology CBC w Diff NO MAN DIFF REQ WBC (4.8 - 10.8 /CUMM) 10.6 RBC (4.70 - 6.10 /CUMM) 4.96 Hgb (14.0 - 18.0 G/DL) 13.1 L Hct (42 - 52 %) 39.4 L MCV (80.0 - 94.0 FL) 79.4 L MCH (27.0 - 31.0 PG) 26.4 L RDW (11.5 - 14.5 %) 14.6 H Plt Count (130 - 400 /CUMM) 223 MPV (7.4 - 10.4 FL) 9.4 Gran % (42.2 - 75.2 %) 71.4 Lymphocytes % (20.5 - 51.1 %) 18.3 L Monocytes % (1.7 - 9.3 %) 8.8 Eosinophils % (0 - 5 %) 1.1 Basophils % (0.0 - 2.0 %) 0.4 Absolute Granulocytes (1.4 - 6.5 /CUMM) 7.6 H Absolute Lymphocytes (1.2 - 3.4 /CUMM) 1.9 Absolute Monocytes (0.10 - 0.60 /CUMM) 0.9 H Absolute Eosinophils (0.0 - 0.7 /CUMM) 0.1 Absolute Basophils (0.0 - 0.2 /CUMM) 0 PUBS MCHC (33.0 - 37.0 G/DL) 33.2 11/09 11/09 1538 1235 Chemistry Sodium (137 - 145 mmol/L) 141 Potassium (3.5 - 5.1 mmol/L) 3.4 L Chloride (98 - 107 mmol/L) 99 Carbon Dioxide (22 - 30 mmol/L) 30 Anion Gap (5 - 16) 12 BUN (9 - 20 mg/dL) 10 Creatinine (0.7 - 1.2 mg/dL) 1.0 Estimated GFR (>60 ml/min) > 60 BUN/Creatinine Ratio (7 - 25 %) 10.0 Glucose (65 - 99 mg/dL) 103 H Hemoglobin A1c (4.2 - 5.8 %) 5.5 Calcium (8.4 - 10.2 mg/dL) 9.9 Total Bilirubin (0.2 - 1.3 mg/dL) 0.7 AST (17 - 59 U/L) 25 ALT (21 - 72 U/L) 33 Alkaline Phosphatase (< 127 U/L) 90 Troponin I (<0.11 ng/ml) < 0.01 Total Protein (6.3 - 8.2 g/dL) 8.0 Albumin (3.5 - 5.0 g/dL) 4.7 Globulin (1.9 - 4.2 gm/dL) 3.3 Albumin/Globulin Ratio (1.1 - 2.2 %) 1.4 Hematology CBC w Diff NO MAN DIFF REQ WBC (4.8 - 10.8 /CUMM) 10.6 RBC (4.70 - 6.10 /CUMM) 5.47 Hgb (14.0 - 18.0 G/DL) 14.4 Hct (42 - 52 %) 42.8 MCV (80.0 - 94.0 FL) 78.3 L MCH (27.0 - 31.0 PG) 26.3 L RDW (11.5 - 14.5 %) 13.9 Plt Count (130 - 400 /CUMM) 244 MPV (7.4 - 10.4 FL) 8.9 Gran % (42.2 - 75.2 %) 85.5 H Lymphocytes % (20.5 - 51.1 %) 8.3 L Monocytes % (1.7 - 9.3 %) 5.8 Eosinophils % (0 - 5 %) 0.3 Basophils % (0.0 - 2.0 %) 0.1 Absolute Granulocytes (1.4 - 6.5 /CUMM) 9.1 H Absolute Lymphocytes (1.2 - 3.4 /CUMM) 0.9 L Absolute Monocytes (0.10 - 0.60 /CUMM) 0.6 Absolute Eosinophils (0.0 - 0.7 /CUMM) 0 Absolute Basophils (0.0 - 0.2 /CUMM) 0 PUBS MCHC (33.0 - 37.0 G/DL) 33.6 Urines Urine Color (YEL,AMB,STR) YEL Urine Clarity (CLEAR) CLEAR Urine pH (5.0 - 8.0) 6.5 Ur Specific [place] (1.001 - 1.035) 1.020 Urine Protein (NEG,<30 MG/DL) 100 H Urine Ketones (NEG) NEG Urine Nitrite (NEG) NEG Urine Bilirubin (NEG) NEG Urine Urobilinogen (0.1 - 1.0 EU/dl) 0.2 Ur Leukocyte Esterase (NEG) NEG Ur Microscopic SEDIMENT EXAMINED Urine RBC (0 - 5 /HPF) 10-15 H Urine WBC (0 - 2 /HPF) 3-5 H Ur Epithelial Cells (NONE,FEW) FEW Urine Bacteria (NEG/NONE) FEW H Urine Mucus (FEW,NONE) FEW Urine Hemoglobin (NEG) TRACE-LYSED H Urine Glucose (N MG/DL) NEG Diagnostic Data EKG Results Tracing was personally reviewed and shows sinus rhythm with left ventricular hypertrophy and nonspecific T-wave abnormalities Other Results Telemetry tracings were personally reviewed and shows sinus rhythm and sinus bradycardia CTA: IMPRESSION: 1. No acute abnormality. No aortic dissection or aneurysm. Echo: Left ventricular cavity size normal. Left ventricular wall thickness mild to moderately increased. No obvious regional wall motion abnormalities. Left ventricular ejection fraction is estimated at > 60 %. Normal right ventricular size and function. Mild left atrial dilatation. [id number] tricuspid regurgitation. Right ventricular systolic pressure estimated at 35 mmHg. Normal size aortic root and proximal ascending aorta. Sonny Hercules M.D. (Electronically Signed) Final Date: 10 November 2016 09:53 Assessment/Plan Assessment/Plan 1. Hypertensive urgency with headache 2. Chest pain with negative cardiac biomarkers 3. Abnormal EKG 4. Left ventricular hypertrophy 5. Noncompliance with medications/medical follow-up 6. Mild hypokalemia The patient presents with severe hypertension/hypertensive urgency due to noncompliance with medications. CT was negative for intracranial hemorrhage and CTA was negative for aortic dissection. Cardiac biomarkers remain within normal limits. I suspect the ECG abnormalities are due to repolarization abnormality from left ventricular hypertrophy. The patient will require outpatient stress testing in the future when blood pressure is better controlled. Replete potassium as needed. Echocardiogram shows left ventricular hypertrophy without any wall motion abnormalities or aortic dilatation. Will carefully titrate up blood pressure medications with avoidance of over correction in the acute setting. Agree with increasing the labetalol to 200 milligrams p.o. b.i.d. and then resuming losartan; would target a systolic blood pressure of 170-180 mmHg over the next 24 hours. Radhames Hercules MD [facility] Consult Acknowledgment - Thank you for your consult request.
[2016-11-11 02:25] VITALS: BP 170/100
[2016-11-11] MEDS ORDERED: LABETALOL HCL200 M1 PO (06:05)
[2016-11-11] MEDS ORDERED: NITROSTAT0.4 M1 SL ×2 (06:05→08:58)
[2016-11-11] MEDS ORDERED: ATORVASTATIN CA40 M1 PO ×2 (06:05→08:52)
[2016-11-11] MEDS ORDERED: ASPIRIN81 M4 PO ×2 (06:05→08:58)
--- NOTE | 2016-11-11 06:10 | Patient Discharge Instructions ---
Discharge Instructions General Discharge Information You were seen/treated for: Severe hypertension called hypertensive emergency and treated with medicines Special Instructions: please follow up with asbestos worker helper with in a week of discharge please follow up with PCP with in a week of discharge please take the medication as advised On examination, we found that your urine is having some blood in it. You may need follow-up with your PCP for further evaluation and management. Diet Continue normal diet: No Recommended Diet: Heart Healthy, Low Fat, Regular no added salt Acute Coronary Syndrome Inclusion Criteria At DC or during hospital stay patient has or had the following: ACS DIAGNOSIS No Discharge Core Measures Meds if any: Prescribed or Continued at Discharge Meds if any: NOT Prescribed or Continued at Discharge Congestive Heart Failure Inclusion Criteria At DC or during hospital stay patient has or had the following: CHF DIAGNOSIS No Discharge Core Measures Meds if any: Prescribed or Continued at Discharge Meds if any: NOT Prescribed or Continued at Discharge Cerebrovascular accident Inclusion Criteria At DC or during hospital stay patient has or had the following: CVA/TIA Diagnosis No Discharge Core Measures Meds if any: Prescribed or Continued at Discharge Meds if any: NOT Prescribed or Continued at Discharge Venous thromboembolism Inclusion Criteria VTE Diagnosis No VTE Type NONE VTE Confirmed by (Test) NONE Discharge Core Measures - Per Current guidelines, there needs to be overlap - treatment for the first 5 days of Warfarin therapy. - If discharged on Warfarin prior to 5 days of - overlap therapy, the patient will need to be - assessed for post discharge needs including - *Post discharge parental anticoagulation - *Warfarin and/or parental anticoagulation education - *Follow up date to check INR post discharge At least 5 days overlap therapy as Inpatient No Meds if any: Prescribed or Continued at Discharge Note: Overlap Therapy is Warfarin and Anticoagulant Meds if any: NOT Prescribed or Continued at Discharge Note: Overlap Therapy is Warfarin and Anticoagulant Meds if any: NOT Prescribed or Continued at Discharge
--- NOTE | 2016-11-11 08:35 | Discharge Summary ---
Visit Information Visit Dates Admission Date: 11/09/16 Discharge Date: 11/11/16 Hospital Course Course Attending Physician: JOSE DE JESUS LOCKHART,SULEIMAN Primary Care Physician: PATIENT HAS NO PRIMARY CARE DR Hospital Course: Patient is a 46-year-old male, presented with chief complaints of progressive intermittent headache, nausea and vomiting since couple of days. Vital signs at the time of admission-temperature 97.2, pulse 77, respiratory rate 16, blood pressure 232/152, SPO2 96% on room air Pertinent labs -MCV 78.3, granulocyte-85.5,k-3.4, urine protein-100, RBC-10-15, WBC 3-5, CT scan of the head-no acute intracranial hemorrhage. Echo 2016 - Normal size left ventricle.LVEF >60%. No obvious regional wall motion abnormalities. Mild concentric LVH. Assessment and plan - Patient has history of hypertension and was off the medication since last 1 year.probably leading to severe rebound hypertension, presented with severe headache with nausea and vomiting. It seems hypertensive emergency, but CT scan does not show done in evidence of ischemic or HEMORRHAGE. Blood workup showed hypokalemia and troponins is negative. Blood pressure in the emergency was 240/ 120. He was given 20 milligrams of IV labetalol , which decreased blood pressure to 200/100 , followed by 10 milligram of IV hydralazine. Blood pressure brought down to 186/106. Plan Hypertensive emergency * We will continue telemetry monitoring * Serial EKGs did not show any new changes. Serial troponins were negative * We will keep the blood pressure in the range of 180/100. * Patient is also complaining of chest pain, if needed, We will consider nitroglycerin patch. * We increased dose of antihypertensive -Labetalol 200 milligrams twice a day, tablet amlodipine 10 milligrams OD, tablet losartan 50 milligrams once a day. * Neuro check every 4, as patient is complaining of headach Chest pain, ruling out aortic dissection * We will continue tablet aspirin and high-dose atorvastatin. * CT angiogram does not show any evidence of dissection of aorta Hypokalemia - K -3.3 * We will supplement with 40 milliequivalents of the potassium and regularly monitor Hematuria/proteinuria UA- urine protein-100, RBC-10-15, WBC 3-5. we will repeat UA * We will consider ultrasound of abdomen to rule out nephrolithiasis/bladder stone. We will also consider renal angiogram to rule out renal artery stenosis. Diet-heart healthy diet, low salt intake DVT prophylaxis-ALP S, we will avoid heparin because patient has very high blood pressure. CODE STATUS-full code Allergies: Coded Allergies: NO KNOWN ALLERGIES (02/01/16) Disposition Summary Disposition Principal Diagnosis: Hypertensive emergency Additional Diagnosis: Obesity Hematuria Discharge Disposition: home or self care Discharge Instructions General Discharge Information Code Status: Full Code Patient's Diet: Heart healthy diet, low-salt diet, low-fat diet Patient's Activity: As tolerated Follow-Up Instructions/Appts: please follow up with foam cutting supervisor with in a week of discharge please follow up with PCP with in a week of discharge please take the medication as advised On examination, we found that your urine is having some blood in it. You may need follow-up with your PCP for further evaluation and management. Medications at Discharge Discharge Medications: Continue taking these medications: Amlodipine Besylate (Amlodipine Besylate) 10 MG TABLET 1 Tablet ORAL DAILY Qty = 30 Comments: Last Taken:11/11/16 Time: 09am Losartan (Cozaar) 100 MG TABLET 1 Tablet ORAL DAILY Qty = 30 Comments: Last Taken: 11/11/16 Time: 9pm Nitroglycerin (Nitrostat) 0.4 MG TAB.SUBL 1 Tablet SUBLINGUAL As Directed Qty = 30 Instructions: 1st sign of attack; may repeat every 5 minutes until relief; if pain persists after 3 tablets in 15 minutes. Comments: NOT GIVEN IN HOSPITAL. This prescription has been renewed Start taking the following new medications: Atorvastatin Calcium (Atorvastatin Calcium) 40 MG TABLET 1 Tablet ORAL 5 PM Qty = 90 No Refills Instructions: . Comments: Last Taken: 11/10/16 Time: 5pm Aspirin (Aspirin*) 81 MG TAB.CHEW 81 Milligram ORAL DAILY Qty = 90 No Refills Instructions: . Comments: Last Taken: 11/11/16 Time: 09am Copies To: JENNY LOCKHART,Yahaira Attending MD Review Statement Documenting Attending: JOSE DE JESUS LOCKHART,SULEIMAN
[2016-11-11 08:55] VITALS: BP 150/90
[2016-11-11 09:13] VITALS: BP 150/90
--- NOTE | 2016-11-11 10:48 | PN- Att Addend ---
Attending Addendum Attending Brief Note Patient seen and examined. Plan of care discussed with the medical team and the patient. Available lab work and radiology test reports were reviewed. He states that his headache has somewhat improved since yesterday. He has no other complaints and denies any chest pain nausea sweating. Vital Signs Date Time Temp Pulse Resp B/P B/P Pulse O2 O2 Flow FiO2 Mean Ox Delivery Rate 11/11 0913 64 150/90 11/11 0912 64 150/90 11/11 0855 98.0 64 20 150/90 98 Room Air 11/11 0225 170/100 11/10 2355 98.0 72 12 174/116 96 Room Air 11/10 2250 160/90 11/10 2116 70 180/110 11/10 2116 70 180/110 11/10 1600 98.2 65 20 184/110 97 Room Air 11/10 1315 60 172/116 11/10 1107 79 190/114 11/10 1107 79 190/114 Intake & Output 11/11 1600 11/11 0800 11/11 0000 Intake Total 120 120 Output Total Balance 120 120 Intake, Oral 120 120 Exam: General: Patient awake alert oriented without any distress CVS: S1 plus S2 without any murmur or gallops Chest: Few scattered crepitation without any wheeze. There is no respiratory distress. Abdomen: Soft nontender, bowel sound present, no guarding or rebound CRANE MECHANIC: Awake alert oriented without any focal neuro deficit and follows command appropriately Extremities: No edema; no clubbing or cyanosis noted No new labs done today Assessment * Hypertensive urgency * Headache likely from elevated BP * Chest pain rule out [place] * Mild hypokalemia * EKG changes Plan * Continue losartan and Norvasc. We will DC labetalol * Continue Lipitor * Cardiac consult noted. Plan is for outpatient stress test. Patient was counseled to make an appointment soon to discharge * Discharge home today; patient is medically stable * Total time spent in preparation for discharge plan, patient education, and CMR preparation was 35 minutes.
--- NOTE | 2016-11-11 12:14 | PN- Cardiology ---
Subjective Subjective: The patient is awake, alert Ambulating in the hallway without difficulty The events of the last 24 hours as well as telemetry were reviewed. Review of Systems: The review of systems is negative for chest pains, palpitations nor lightheadedness. The remainder of the 14 point review of systems is noncontributory with the exception of above. Objective Vital Signs and I&Os Vital Signs Date Time Temp Pulse Resp B/P B/P Pulse O2 O2 Flow FiO2 Mean Ox Delivery Rate 11/11 0913 64 150/90 11/11 0912 64 150/90 11/11 0855 98.0 64 20 150/90 98 Room Air 11/11 0225 170/100 11/10 2355 98.0 72 12 174/116 96 Room Air 11/10 2250 160/90 11/10 2116 70 180/110 11/10 2116 70 180/110 11/10 1600 98.2 65 20 184/110 97 Room Air 11/10 1315 60 172/116 Intake & Output 11/11 1600 11/11 0800 11/11 0000 11/10 1600 11/10 0800 11/10 0000 Intake Total 120 120 900 320 340 Output Total 400 Balance 120 120 900 -80 340 Intake, IV 100 Intake, Oral 120 120 900 320 240 Output, Urine 400 Patient 230 lb Weight Weight Estimated Measurement Method Physical Exam: General: Nontoxic, no apparent distress. HEENT: Sclera and conjunctiva within normal limits, without xanthelasmas. Neck: Carotids 2+ without bruits. Respiratory: Clear to auscultation, air movement is good, without accessory respiratory muscle use. Heart: Regular rate and rhythm, without murmurs, without JVD. Abdomen: Soft, nontender, no masses, normoactive bowel sounds. Extremities: Without clubbing, cyanosis, without edema. Neuro: Nonfocal exam, strength, 5 out of 5 Skin: Within normal limits without lesions. Psych: Mood and affect: Normal Current Medications: Current Medications Sig/Abe Start time Last Medication Dose Route Stop Time Status Admin Acetaminophen 650 MG Q6P PRN 11/09 1730 AC 11/10 PO 1040 Amlodipine Besylate 10 MG DAILY 11/10 1000 AC 11/11 PO 0912 Aspirin 81 MG DAILY 11/10 1000 AC 11/11 PO 0912 Atorvastatin Calcium 40 MG 1700 11/10 1700 AC 11/10 PO 1700 Labetalol HCl 200 MG BID 11/10 2199 AC 11/10 PO 2115 Losartan Potassium 50 MG DAILY@11/10 AC 11/10 PO 211 Morphine Sulfate 2 MG Q6P PRN 11/09 1930 AC IV Nitroglycerin 0.4 MG ONCE PRN 11/09 1800 AC SL Potassium Chloride 40 MEQ ONCE ONE 11/10 1430 DC 11/10 PO 11/10 1431 1700 Results Last 48 Hrs of Labs/Mics: Laboratory Tests 11/10/16 0626: Anion Gap 11, Estimated GFR > 60, BUN/Creatinine Ratio 17.3, CBC w Diff NO MAN DIFF REQ, RBC 4.96, MCV 79.4 L, MCH 26.4 L, RDW 14.6 H, MPV 9.4, Gran % 71.4, Lymphocytes % 18.3 L, Monocytes % 8.8, Eosinophils % 1.1, Basophils % 0.4, Absolute Granulocytes 7.6 H, Absolute Lymphocytes 1.9, Absolute Monocytes 0.9 H, Absolute Eosinophils 0.1, Absolute Basophils 0, PUBS MCHC 33.2 11/09/16 2345: Troponin I < 0.01 11/09/16 1748: Troponin I < 0.01 11/09/16 1538: Urine Color YEL, Urine Clarity CLEAR, Urine pH 6.5, Ur Specific [place] 1.020, Urine Protein 100 H, Urine Ketones NEG, Urine Nitrite NEG, Urine Bilirubin NEG, Urine Urobilinogen 0.2, Ur Leukocyte Esterase NEG, Ur Microscopic SEDIMENT EXAMINED, Urine RBC 10-15 H, Urine WBC 3-5 H, Ur Epithelial Cells FEW, Urine Bacteria FEW H, Urine Mucus FEW, Urine Hemoglobin TRACE-LYSED H, Urine Glucose NEG 11/09/16 1235: Anion Gap 12, Estimated GFR > 60, BUN/Creatinine Ratio 10.0, Glucose 103 H, Hemoglobin A1c 5.5, Calcium 9.9, Total Bilirubin 0.7, AST 25, ALT 33, Alkaline Phosphatase 90, Troponin I < 0.01, Total Protein 8.0, Albumin 4.7, Globulin 3.3, Albumin/Globulin Ratio 1.4, CBC w Diff NO MAN DIFF REQ, RBC 5.47, MCV 78.3 L, MCH 26.3 L, RDW 13.9, MPV 8.9, Gran % 85.5 H, Lymphocytes % 8.3 L, Monocytes % 5.8, Eosinophils % 0.3, Basophils % 0.1, Absolute Granulocytes 9.1 H, Absolute Lymphocytes 0.9 L, Absolute Monocytes 0.6, Absolute Eosinophils 0, Absolute Basophils 0, PUBS MCHC 33.6 Assessment/Plan Assessment/Plan 1. Hypertensive urgency with headache 2. Chest pain with negative cardiac biomarkers 3. Abnormal EKG 4. Left ventricular hypertrophy 5. Noncompliance with medications/medical follow-up 6. Mild hypokalemia The patient presents with severe hypertension/hypertensive urgency due to noncompliance with medications. CT was negative for intracranial hemorrhage and CTA was negative for aortic dissection. Cardiac biomarkers remain within normal limits. Echocardiogram shows left ventricular hypertrophy without any wall motion abnormalities or aortic dilatation. At this time, we will continue ambulating the patient. If he remains asymptomatic with an improved blood pressure control (target is approximately 170 systolic), we may consider discharging the patient with further outpatient follow-up and further titration of his antihypertensive regimen as an outpatient. Continue telemetry? No
--- NOTE | 2016-11-11 14:51 | PN- Housestaff ---
Subjective Follow-up For: Hypertensive emergency Complaints: occasional headaches but able to sleep in nights Tele-Events Since Last Visit: Normal sinus rhythm, heart rate between 57-75, no any overnight events Subjective: Patient is seen and examined at the bedside. He doesn't have any active complaints. He had occasional headache in the night. Otherwise, he is symptom- free Review of Systems Constitutional: Reports: no symptoms. Neurological/Psychological: Reports: headache. Objective Last 24 Hrs of Vital Signs/I&O Vital Signs Date Time Temp Pulse Resp B/P B/P Pulse O2 O2 Flow FiO2 Mean Ox Delivery Rate 11/11 0913 64 150/90 11/11 0912 64 150/90 11/11 0855 98.0 64 20 150/90 98 Room Air 11/11 0225 170/100 11/10 2355 98.0 72 12 174/116 96 Room Air 11/10 2250 160/90 11/10 2116 70 180/110 11/10 2116 70 180/110 Intake & Output 11/11 1600 11/11 0800 11/11 0000 Intake Total 120 120 Output Total Balance 120 120 Intake, Oral 120 120 Physical Exam General Appearance: Alert, Oriented X3, Cooperative, No Acute Distress Cardiovascular: Normal S1, Normal S2 Lungs: Clear to Auscultation, Normal Air Movement Abdomen: Soft, distended Neurological: Normal Speech Extremities: No Clubbing, No Cyanosis, No Edema Vascular: Normal Pulses, Pulses Symmetrical Current Medications: Current Medications Sig/Abe Start time Last Medication Dose Route Stop Time Status Admin Acetaminophen 650 MG Q6P PRN 11/09 1730 DCD 11/10 PO 1040 Amlodipine Besylate 10 MG DAILY 11/10 1000 DCD 11/11 PO 0912 Aspirin 81 MG DAILY 11/10 1000 DCD 11/11 PO 0912 Atorvastatin Calcium 40 MG 1700 11/10 1700 DCD 11/10 PO 1700 Labetalol HCl 200 MG BID 11/100 DCD 11/10 PO 211 Losartan Potassium 50 MG DAILY@11/100 DCD 11/10 PO 211 Morphine Sulfate 2 MG Q6P PRN 11/09 1930 DCD IV Nitroglycerin 0.4 MG ONCE PRN 11/09 1800 DCD SL Assessment/Plan Assessment: Patient is a 46-year-old male, presented with chief complaints of progressive intermittent headache, nausea and vomiting since couple of days. Vital signs at the time of admission-temperature 97.2, pulse 77, respiratory rate 16, blood pressure 232/152, SPO2 96% on room air Pertinent labs -MCV 78.3, granulocyte-85.5,k-3.4, urine protein-100, RBC-10-15, WBC 3-5, CT scan of the head-no acute intracranial hemorrhage. Echo 2016 - Normal size left ventricle.LVEF >60%. No obvious regional wall motion abnormalities. Mild concentric LVH. Assessment and plan - Patient has history of hypertension and was off the medication since last 1 year.probably leading to severe rebound hypertension, presented with severe headache with nausea and vomiting. It seems hypertensive emergency, but CT scan does not show done in evidence of ischemic or HEMORRHAGE. Blood workup showed hypokalemia and troponins is negative. Blood pressure in the emergency was 240/ 120. He was given 20 milligrams of IV labetalol , which decreased blood pressure to 200/100 , followed by 10 milligram of IV hydralazine. Blood pressure brought down to 186/106. Assessment * Hypertensive emergency * Hypokalemia - K -3.3 * Hematuria/proteinuria Plan Discharge today We stopped the labetalol and continued amlodipine and losartan We gave the prescription for BP instrument Advised to follow-up with PCP and marbleizing machine tender for further management of hypertension We did classification counselor about the hypertensive emergency and its management and complication We advised for low-salt diet and low-fat diet Problem List: 1. Hematuria 2. Hypertensive emergency Pain Ratin Pain Location: Headache Pain Goal: Remain pain free Pain Plan: NSAIDs Tomorrow's Labs & Rationales: Not required as patient is discharged DVT/Prophylaxis: early ambulation low risk Headache Pain Goal: Remain pain free Pain Plan: NSAIDs Tomorrow's Labs & Rationales: Not required as patient is discharged DVT/Prophylaxis: early ambulation low risk
== END 2016-11-11 12:30 | DRG 305 ==
LOC: ERH 12:05 → 1NO 17:02 → ERHI 17:02 → ENTRNSPT 18:31 → 1NO 18:52 → CMPTRNSPT 19:09 → 1NO 11-10 08:26 → EDPENDDISDT 11-11 09:58 → EDPENDDISTM 11-11 09:58 → 1NO 11-11 12:30
PROVIDERS: Internal Medicine Adolescent Medicine; Physician Assistant Medical; ADMIT Hospitalist
DX: I10 Essential (primary) hypertension (principal); E87.6 Hypokalemia; R07.9 Chest pain, unspecified; E66.9 Obesity, unspecified; R51 Headache; Z87.891 Personal history of nicotine dependence; Z68.37 Body mass index [BMI] 37.0-37.9, adult
CPT/HCPCS: 1NSP; 36415; 81001; 82436; 93005; 93010; 93306; 96374; 96375; 96376; 99291; J0360; J3490

== ENCOUNTER 2017-12-29 18:47 | Inpatient (IN) | payer OTHER ==
[~2017-12-29] VITALS: Ht 165.1 cm; Wt 111.7 kg
[~2017-12-29 18:47] MED LIST changes: +ASPIRIN81 M4 PO; +ATORVASTATIN CA40 M1 PO; +LABETALOL HCL200 M1 PO; +NITROSTAT0.4 M1 SL
[2017-12-29 19:56] LABS: ABSOLUTE BASOPHIL COUNT 0 /CUMM (0.0-0.2); ABSOLUTE EOSINOPHIL COUNT 0 /CUMM (0.0-0.7); ABSOLUTE LYMPH COUNT 0.6 /CUMM (1.2-3.4); ABSOLUTE MONOCYTE COUNT 2.1 /CUMM (0.10-0.60); BASOPHIL % 0 % (0.0-2.0); EOSINOPHIL % 0 % (0-5); GRANULOCYTE % 87.6 % (42.2-75.2); MEAN CORPUSCULAR HGB 26.5 PG (27.0-31.0); MEAN CORPUSCULAR HGB CONC 33.6 G/DL (33.0-37.0); MEAN CORPUSCULAR VOLUME 78.8 FL (80.0-94.0); MEAN PLATELET VOLUME 8.6 FL (7.4-10.4); PLATELET COUNT 245 /CUMM (130-400); RBC DISTRIBUTION WIDTH 14.2 % (11.5-14.5); WHITE BLOOD CELL COUNT 21.7 /CUMM (4.8-10.8)
--- NOTE | 2017-12-29 21:34 | ED GENERAL ADULT ---
History of Present Illness General Chief Complaint: General Adult Stated Complaint: GENERAL WEAKNESS Source: patient Exam Limitations: no limitations Vital Signs & Intake/Output Vital Signs & Intake/Output Vital Signs Date Time Temp Pulse Resp B/P B/P Pulse O2 O2 Flow FiO2 Mean Ox Delivery Rate 12/29 2220 98.7 77 18 133/80 97 Room Air 12/29 2120 Room Air 12/29 2042 100.1 12/29 2041 100.1 12/29 1934 101.3 12/29 1934 101.3 12/30 1931 101.3 106 16 130/76 95 Room Air ED Intake and Output 12/30 0000 12/29 1200 Intake Total 0 Output Total Balance 0 Intake, Oral 0 Patient 230 lb Weight Weight Reported by Patient Measurement Method Allergies Coded Allergies: No Known Allergies (12/29/17) Reconcile Medications Amlodipine Besylate 10 MG TABLET 1 TAB PO DAILY HTN Aspirin (Aspirin*) 81 MG TAB.CHEW 81 MG PO DAILY CAD . Atorvastatin Calcium 40 MG TABLET 1 TAB PO 1700 high lipids . Losartan (Cozaar) 100 MG TABLET 1 TAB PO DAILY HTN Nitroglycerin (Nitrostat) 0.4 MG TAB.SUBL 1 TAB SL AD chest pain 1st sign of attack; may repeat every 5 minutes until relief; if pain persists after 3 tablets in 15 minutes. Triage Note: PT REPORTS GENERAL WEAKNESS SINCE THIS MORNING. FEBRILE IN TRIAGE. TEMP 101.3, MEDICATED WITH 650MG TYLENOL AND 600MG MOTRIN. Triage Nurses Notes Reviewed? yes HPI: Mr. Sierra is a 37-year-old male past medical history of hypertension, comes in complaining of weakness, fatigue and general malaise. Patient states his weakness started this morning, accompanied by chills and fever. Patient also notes diarrhea started around noon, 4-6 episodes since then, described as nonbloody loose stools. Patient does endorse right lower extremity swelling, that is tender to touch with increased warmth of 1 week duration. In triage the patient was noted to be febrile 101.3, tachycardic. The patient does not offer any more acute complaints. He denies any recent upper respiratory tract infection, cough, trauma to the right lower extremity, chest pain, dysuria, recent travel history, sick contacts. On examination, Patient's vitals were stable: MAP>65, lungs CTA B/L, with a capillary refill <2s; though was tachycardic in low 100s. (Richard Mathias MD,[facility]) Past History Travel History Traveled to [place] past 21 day No Medical History Any Pertinent Medical History? none Neurological: NONE EENT: NONE Cardiovascular: hypertension, hyperlipidemia Respiratory: NONE Gastrointestinal: NONE Hepatic: NONE Renal: NONE Musculoskeletal: R ANKLE FX/SX/HDWE Psychiatric: NONE Endocrine: NONE Blood Disorders: NONE Cancer(s): NONE PATTERN GATER/Reproductive: NONE History of MRSA: No History of VRE: No History of CDIFF: No Surgical History Surgical History: non-contributory Psychosocial History Who do you live with Patient/Self Services at Home None What is your primary language Korean Tobacco Use: Never used Family History Hx Contributory? No (Richard Mathias MD,[place]) Review of Systems Review of Systems Constitutional: Reports: see HPI. EENTM: Reports: no symptoms. Respiratory: Reports: no symptoms. Cardiovascular: Reports: no symptoms. GI: Reports: no symptoms. Genitourinary: Reports: no symptoms. Musculoskeletal: Reports: no symptoms. Skin: Reports: no symptoms. Neurological/Psychological: Reports: no symptoms. Hematologic/Endocrine: Reports: no symptoms. Immunologic/Allergic: Reports: no symptoms. All Other Systems: Reviewed and Negative (Richard Mathias MD,[place]) Physical Exam Physical Exam General Appearance: well developed/nourished, no apparent distress, alert, awake , comfortable Head: atraumatic, normal appearance Eyes: Bilateral: normal appearance. Ears, Nose, Throat: normal pharynx Neck: normal inspection, supple, full range of motion, No LAD Cardiovascular: tachycardia, No murmurs, rubs or gallops. Gastrointestinal: normal bowel sounds, soft, no organomegaly, Mild tenderness on epigastrium. No guarding or rebound tenderness. Negative Rovsing. Extremities: normal inspection, normal capillary refill, normal range of motion, Erythemathous, swelling is noted pm R leg. Tenderness was noted on R calf, negative Justin's sign. Core Measures ACS in differential dx? No CVA/TIA Diagnosis: No Sepsis Present: Yes Sepsis Focused Exam Completed? Yes ([place] Arnold MD) Progress Differential Diagnoses I considered the following diagnoses in my evaluation of the patient: [ Appendicitis, Cellulitis] Initial ED EKG: sinus tachycardia (Richard Mathias MD,[facility]) Plan of Care: Orders Procedure Date/time Status Heart Healthy Diet 12/30 B Active LACTIC ACID 12/30 014 Active ED Holding Orders 12/31 35 Active Admit to inpatient 12/31 35 Active Vital Signs 12/31 35 Active Code Status 12/31 35 Active XRY-CHEST XRAY, TWO VIEWS 12/30 21 Active XRY-TWO VIEW RIGHT ANKLE 12/30 21 Active LACTIC ACID 12/29 2300 Complete Add-on Test (ER Only) 12/29 221 Active BLOOD CULTURE 12/29 2150 Active US-EXT BILAT VENOUS DOPPLER 12/29 2138 Active Add-on Test (ER Only) 12/29 2122 Active URINALYSIS 12/29 2056 Complete EKG 12/29 2056 Active TROPONIN LEVEL 12/29 1944 Complete MAGNESIUM 12/29 1944 Complete LACTIC ACID 12/29 1944 Complete COMPREHENSIVE METABOLIC PANEL 12/29 193 Complete CBC WITHOUT DIFFERENTIAL 12/30 1935 Complete Current Medications Sig/Abe Start time Last Medication Dose Stop Time Status Admin Sodium Chloride 1,000 ML BOLUS ONE 12/30 0045 AC (Normal Saline 0.9%) 12/30 0144 Sodium Chloride 1,000 ML BOLUS ONE 12/30 0030 AC (Normal Saline 0.9%) 12/30 0129 Laboratory Tests 12/30/17 0029: Urinalysis LIGHT H, Urine Color STRAW, Urine Clarity CLEAR, Urine pH 6.0, Ur Specific [place] <= 1.005, Urine Protein NEG, Urine Ketones NEG, Urine Nitrite NEG, Urine Bilirubin NEG, Urine Urobilinogen 0.2, Ur Leukocyte Esterase NEG, Ur Microscopic SEDIMENT EXAMINED, Urine RBC 1-3, Urine WBC 1-3 H, Ur Epithelial Cells FEW, Urine Hemoglobin SMALL H, Urine Glucose NEG 12/29/17 2312: Lactic Acid 3.0 H 12/29/172150: Lactic Acid Cancelled 12/29/172056: Magnesium Cancelled, Troponin I Cancelled 12/29/171944: Anion Gap 10, Estimated GFR 59 L, BUN/Creatinine Ratio 12.3, Glucose 111 H, Lactic Acid 2.2 H, Calcium 9.2, Magnesium 1.5 L, Total Bilirubin 0.7, AST 23, ALT 34, Alkaline Phosphatase 62, Troponin I < 0.01, Total Protein 7.3, Albumin 4.1, Globulin 3.2, Albumin/Globulin Ratio 1.3, CBC w Diff MAN DIFF ORDERED, RBC 4.70, MCV 78.8 L, MCH 26.5 L, MCHC 33.6, RDW 14.2, MPV 8.6, Gran % 87.6 H, Lymphocytes % 2.6 L, Monocytes % 9.8 H, Eosinophils % 0, Basophils % 0, Absolute Granulocytes 19.0 H, Segmented Neutrophils 71, Band Neutrophils 22 H, Absolute Lymphocytes 0.6 L, Lymphocytes 1 L, Monocytes 6, Absolute Monocytes 2.1 H, Absolute Eosinophils 0, Absolute Basophils 0, Platelet Estimate ADEQUATE Microbiology 12/29 2209 BLOOD: Blood Culture - RECD 12/30 2207 BLOOD: Blood Culture - RECD This 47-year-old male coming complaining of fatigue, general malaise, periumbilical pain on examination, and R Lower Extremity swelling; leukocytosis noted of 21 with bandemia, lactic acidemia, febrile, concerning for appendicitis vs cellulitis. Patient's vitals were stable: MAP>65, lungs CTA B/L, with a capillary refill <2s; though was tachycardic in low 100s. CT abdomen and pelvis was ordered and came back negative for any acute intra-abdominal pathology. His presentation of right leg lower extremity is also concerning for cellulitis, patient does have history of surgery with hardware on the right ankle. He was empirically given on cefazolin and ampi/sulbactam; Xray of R ankle ordered. (Richard Mathias MD,[place]) (Pablo Ramsey DO) Departure Departure Disposition: STILL A PATIENT Condition: Stable Clinical Impression Primary Impression: Cellulitis Qualifiers: Site of cellulitis: extremity Site of cellulitis of extremity: lower extremity Laterality: right Qualified Code: L03.115 - Cellulitis of right lower limb Secondary Impressions: Sepsis Qualifiers: Sepsis type: sepsis due to unspecified organism Qualified Code: A41.9 - Sepsis, unspecified organism Referrals: Patient Has No Primary Care Dr (PCP/Family) Departure Forms: Customer Survey General Discharge Information Admission Note Spoke With: Teto Victoria MD Documentation of Exam: Documentation of any treatments & extenuating circumstances including Concerns Regarding Discharge (functional status, medication knowledge or non-compliance, living conditions, etc.) that warrant an admission rather than observation: [Pt with R lower extremity with swelling, increased warmth, tenderness, lactic acidemia, leukocytosis of 21 with bandemia concerning for cellulitis. He will need IV antibiotics, follow up of blood cultures, monitoring of hemodynamic status.] (Richard Mathias MD,[facility]) Resident Co-Sign Statement Statement: ED Attending supervision documentation- [X] I saw and evaluated the patient. I have also reviewed all the pertinent lab results and diagnostic results. I agree with the findings and the plan of care as documented in the Resident's documentation. [] I have reviewed the ED Record and agree with the Resident's documentation. [] Additions or exceptions (if any) to the Resident's note and plan are summarized below: [] 47-year-old man with diabetes right lower extremity swelling severe ankle pain status post surgery to the right ankle with hardware. He has extreme leukocytosis and bandemia. He is being admitted to the hospital to rule out bacteremia and osteomyelitis (Pablo Ramsey DO) Critical Care Note Critical Care Note Critical Care Time: non-applicable (Pablo Ramsey DO) leukocytosis and bandemia. He is being admitted to the hospital to rule out bacteremia and osteomyelitis (Pablo Ramsey DO)
--- NOTE | 2017-12-29 23:47 | CT SCAN REPORT ---
EXAMINATION: CT ABDOMEN AND PELVIS WITH CONTRAST CLINICAL INFORMATION: Periumbilical pain, fever, leukocytosis. COMPARISON: Ultrasound 06/08/2015 TECHNIQUE: Multidetector volumetric imaging was performed of the abdomen and pelvis following IV administration of 95 mL of Optiray 320 intravenous contrast. Sagittal and coronal reformatted images were obtained on the technologist's workstation. DLP: 735 mGy-cm FINDINGS: LUNG BASES: There is a 0.4 cm right lower lobe pulmonary nodule, series 2 image 4. The lung bases are otherwise clear. The visualized cardiac structures are unremarkable. LIVER, GALLBLADDER, AND BILIARY TREE: The liver is normal in size, shape, and attenuation. No focal hepatic lesion or biliary ductal dilatation is present. The gallbladder is unremarkable with no evidence of radiopaque gallstones, gallbladder wall thickening, or obvious pericholecystic inflammatory changes. PANCREAS: Unremarkable. SPLEEN: Unremarkable. ADRENAL GLANDS: Unremarkable. KIDNEYS AND URETERS: The kidneys are normal in size, shape, and attenuation. No hydronephrosis, hydroureter, or calculi seen. No perinephric stranding. BLADDER: Unremarkable. GASTROINTESTINAL TRACT: The stomach is unremarkable. The small bowel is normal in caliber without obstruction. Portions of fluid-filled small bowel are noted in the central abdomen. Normal appendix. No colonic wall thickening or inflammation. No free air or free fluid. ABDOMINAL WALL: Small fat-containing left inguinal hernia. LYMPH NODES: Normal. VASCULAR: Unremarkable. PELVIC VISCERA: The prostate and seminal vesicles are unremarkable. OSSEOUS STRUCTURES: No acute or suspicious osseous abnormality. IMPRESSION: No acute inflammatory changes of the abdomen or pelvis. Normal appendix. Loops of fluid-filled small bowel are seen in the central abdomen which can be seen in cases of mild enteritis. No associated infiltration of the fat. 0.4 cm right lower lobe pulmonary nodule. No further follow-up needed in a low risk patient. Consider 12 month follow-up chest CT in a high-risk patient.
--- NOTE | 2017-12-30 01:24 | RADIOLOGY REPORT ---
EXAMINATION: XR CHEST CLINICAL INFORMATION: Leukocytosis, bandemia, fever. COMPARISON: 11/09/2016 TECHNIQUE: 2 views of the chest were obtained. FINDINGS: The lungs are well expanded. There is no focal consolidation, edema, or effusion. Bronchial wall thickening is present. No pneumothorax. The cardiomediastinal silhouette is within normal limits. No acute osseous abnormality. IMPRESSION: No consolidation. Bronchial wall thickening can be seen with a small airways process such as asthma or atypical/viral infection.
--- NOTE | 2017-12-30 01:27 | RADIOLOGY REPORT ---
EXAMINATION: XR ANKLE, RIGHT CLINICAL INFORMATION: Pain and swelling of right leg COMPARISON: None TECHNIQUE: Two views of the right ankle. FINDINGS: 2 intact cannulated screws are in place at the medial malleolus. No acute fracture or dislocation. The ankle mortise is congruent. Mild degenerative changes along the ankle mortise with spurring noted. Circumferential soft tissue swelling. No ankle joint effusion. Pes planus. Small plantar heel spur. IMPRESSION: No acute osseous abnormality. Circumferential soft tissue swelling.
--- NOTE | 2017-12-30 02:06 | History & Physical ---
See Addendum Emory Mccoy MD 12/30/17 0205: General Information and HPI MD Statement: I have seen and personally examined KRISTIE LAWSON and documented this H&P. The patient is a 47 year old M who presented with a patient stated chief complaint of [right ankle swelling]. Source of Information: patient, family History of Present Illness: Patient is a 47-year-old male with past medical history of hypertension previously admitted in October for hypertensive emergency and chest pain presenting with chief complaint of generalized weakness and fatigue and right lower extremity swelling and pain. Patient reports that he has had 1 day history of weakness, chills, sweating. He reports that over the past one month he has noticed that his right lower extremity has become swollen, tender, red. Patient denies any trauma, tick/bulk bites or abrasions to the area. Denies any area of open wounds. Patient has a history of instrumentation in the right foot over 5-10 years prior. Patient denies any fever, nausea/vomiting, constipation, abdominal pain. Patient reports a one-day history of diarrhea that loose and watery. Denies bright red blood per stool and melena. States that 2 days prior he had of ham and cheese sandwich from a [place] shop. Reports that he left it out overnight and ate it the next morning after which his diarrhea started. 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 [place]: Denies allergies to medications Medications: Currently on amlodipine 10mg, aspirin 81mg daily, atorvastatin 40mg daily, losartan 100mg daily, reports he is no longer taking nitroglycerin In the ED patient received: Tylenol 650 mg, ibuprofen 600 mg, normal saline 1 L bolus 2, Unasyn 3 g, Cefazolin 1gm On admission: Vitals: MAXIMUM TEMPERATURE 98.7, heart rate 77-85, respiration rate 18, blood pressure 138/83, saturating at 93-98% on room air Labs: Significant for WBC of 21.7 with 87.6% granulocytes, 22 bands, H&H 12.4 and 37.0, MCV 78.8, sodium 134, potassium 3.7, chloride 98, bicarbonate 26, BUN 16, creatinine 1.3, glucose 111, lactic acid 3.0, calcium 9.2, magnesium 1.5, LFTs within normal limits, troponin 0.01 Blood cultures [address] abdomen and pelvis: No acute inflammatory changes of the abdomen or pelvis. Normal appendix. Loops of fluid-filled small bowel are seen in the central abdomen which can be seen in cases of mild enteritis. No associated infiltration of the fat. 0.4 cm right lower lobe pulmonary nodule. No further follow-up needed in a low risk patient. Consider 12 month follow-up chest CT in a high-risk patient. Right ankle x-ray: No acute osseous abnormality. Circumferential soft tissue swelling. Chest x-ray: No consolidation. Bronchial wall thickening can be seen with a small airways process such as asthma or atypical/viral infection. Allergies/Medications Home Med list Amlodipine Besylate 10 MG TABLET 1 TAB PO DAILY HTN Aspirin (Aspirin*) 81 MG TAB.CHEW 81 MG PO DAILY CAD . Losartan (Cozaar) 100 MG TABLET 1 TAB PO DAILY HTN Nitroglycerin (Nitrostat) 0.4 MG TAB.SUBL 1 TAB SL AD chest pain 1st sign of attack; may repeat every 5 minutes until relief; if pain persists after 3 tablets in 15 minutes. Past History Travel History Traveled to [place] past 21 day No Medical History Neurological: NONE EENT: NONE Cardiovascular: hypertension, hyperlipidemia Respiratory: NONE Gastrointestinal: NONE Hepatic: NONE Renal: NONE Musculoskeletal: R ANKLE FX/SX/HDWE Psychiatric: NONE Endocrine: NONE Blood Disorders: NONE Cancer(s): NONE TEAROOM HOST/Reproductive: NONE History of MRSA: No History of VRE: No History of CDIFF: No Surgical History Surgical History: non-contributory Past Family/Social History Psychosocial History Services at Home: None Review of Systems Review of Systems Constitutional: Reports: see HPI. Cardiovascular: Reports: no symptoms. Respiratory: Reports: no symptoms. GI: Reports: see HPI. Genitourinary: Reports: no symptoms. Musculoskeletal: Reports: see HPI. Skin: Reports: see HPI. Neurological/Psychological: Reports: no symptoms. Hematologic/Endocrine: Reports: no symptoms. Immunologic/Allergic: Reports: no symptoms. Exam & Diagnostic Data Last 24 Hrs of Vital Signs/I&O Vital Signs Date Time Temp Pulse Resp B/P B/P Pulse O2 O2 Flow FiO2 Mean Ox Delivery Rate 12/30 0828 136/84 12/30 0828 72 136/84 12/30 0654 101.8 12/30 0600 101.8 94 16 142/64 96 Room Air 12/30 0300 98.7 94 16 142/72 96 Room Air 12/30 0140 98.7 85 18 138/83 98 Room Air 12/29 2221 98.7 77 18 133/80 97 Room Air 12/29 2121 Room Air 12/29 2042 100.1 12/292 100.1 12/29 193 101.3 12/29 1935 101.3 12/29 193 101.3 106 16 130/76 95 Room Air Intake & Output 12/30 1600 12/30 0800 12/30 0000 Intake Total 250 0 Output Total Balance 250 0 Intake, IV 10 Intake, Oral 240 0 Patient 246 lb 230 lb Weight Weight Bed scale Reported by Patient Measurement Method Physical Exam General Appearance Alert, Oriented X3, Cooperative HEENT Atraumatic, PERRLA, EOMI, Mucous Membr. moist/pink Cardiovascular Regular Rate, Normal S1, Normal S2, No Murmurs Lungs Clear to Auscultation, Normal Air Movement Abdomen Normal Bowel Sounds, Soft, No Tenderness Extremities RLE swelling, with warmth, and erythema over the khanna extending to the right ankle Vascular Normal Pulses, Pulses Symmetrical Last 24 Hrs of Labs/Jermaine: Laboratory Tests 12/30/17 0658: Anion Gap 7, Estimated GFR > 60, BUN/Creatinine Ratio 12.7, CBC w Diff Pending, WBC Pending, RBC Pending, Hgb Pending, Hct Pending, MCV Pending, MCH Pending, MCHC Pending, RDW Pending, Plt Count Pending, MPV Pending 12/30/17 0215: Lactic Acid 1.4 12/30/17 0029: Urinalysis LIGHT H, Urine Color STRAW, Urine Clarity CLEAR, Urine pH 6.0, Ur Specific Remus <= 1.005, Urine Protein NEG, Urine Ketones NEG, Urine Nitrite NEG, Urine Bilirubin NEG, Urine Urobilinogen 0.2, Ur Leukocyte Esterase NEG, Ur Microscopic SEDIMENT EXAMINED, Urine RBC 1-3, Urine WBC 1-3 H, Ur Epithelial Cells FEW, Urine Hemoglobin SMALL H, Urine Glucose NEG 12/29/17 2312: Lactic Acid 3.0 H 12/29/172150: Lactic Acid Cancelled 12/29/172056: Magnesium Cancelled, Troponin I Cancelled 12/29/171944: Anion Gap 10, Estimated GFR 59 L, BUN/Creatinine Ratio 12.3, Glucose 111 H, Lactic Acid 2.2 H, Calcium 9.2, Magnesium 1.5 L, Total Bilirubin 0.7, AST 23, ALT 34, Alkaline Phosphatase 62, Troponin I < 0.01, Total Protein 7.3, Albumin 4.1, Globulin 3.2, Albumin/Globulin Ratio 1.3, CBC w Diff MAN DIFF ORDERED, RBC 4.70, MCV 78.8 L, MCH 26.5 L, MCHC 33.6, RDW 14.2, MPV 8.6, Gran % 87.6 H, Lymphocytes % 2.6 L, Monocytes % 9.8 H, Eosinophils % 0, Basophils % 0, Absolute Granulocytes 19.0 H, Segmented Neutrophils 71, Band Neutrophils 22 H, Absolute Lymphocytes 0.6 L, Lymphocytes 1 L, Monocytes 6, Absolute Monocytes 2.1 H, Absolute Eosinophils 0, Absolute Basophils 0, Platelet Estimate ADEQUATE Microbiology 12/29 2209 BLOOD: Blood Culture - RECD 12/30 2207 BLOOD: Blood Culture - RECD Assessment/Plan Assessment: Patient is a 47-year-old male with history of right ankle fracture status post hardware 5-10 years prior presenting with right lower extremity swelling, erythema, calor over the past one month indicative of cellulitis. As the area of infection is over at the hardware there is concern of seeding and infected hardware especially as there are no other notable etiologies of the patient's infection. X-ray of the foot showed soft tissue swelling without any evidence of bone infection. Patient was stable for admission to the general medicine floor. Notable labs include leukocytosis with left shift and bandemia with an initial rise in lactic acid which later resolved after IV fluid hydration. Patient was started on IV Unasyn and blood cultures were sent. Patient had an abdominal CT in the ED which showed of 0.4 cm right lower lobe pulmonary nodule. Problems: 1. Right lower extremity cellulitis, rule out osteomyelitis 2. Lactic acidosis- resolved 3. Right lower lobe pulmonary nodule seen on CT 4. History of hypertension, hyperlipidemia, CAD Plan: Admit to general med Repeat CBC and BEP in a.m. Follow-up blood cultures Continue IV Unasyn every 6 hours Pain control with Tylenol Infectious disease consult in setting of possible infected hardware Continue home medications: amlodipine, aspirin, atorvastatin, losartan Follow-up chest CT in 12 months to follow pulmonary nodule Code: Full code DVT prophylaxis: Heparin subcutaneous, Alps Diet: Heart healthy As Ranked By This Provider Problem List: 1. Cellulitis Qualifiers Site of cellulitis: extremity Site of cellulitis of extremity: lower extremity Laterality: right Qualified Code: L03.115 - Cellulitis of right lower limb Core Measures/Misc (02/05) Acute Coronary Syndrome ACS Diagnosis: No Congestive Heart Failure Congestive Heart Failure Diagnosis No Cerebrovascular Accident CVA/TIA Diagnosis: No VTE (View Protocol) VTE Risk Factors Age>40 No Mechanical VTE Prophylaxis d/t N/A MechProphylax Ordered No VTE Pharm Prophylaxis d/t Supratherapeutic INR Sepsis (View protocol) Sepsis Present: No If YES complete Sepsis Event Note If YES complete Sepsis Event Note Teto Victoria MD 12/30/17 0624: General Information and HPI MD Statement: I have seen and personally examined KRISTIE LAWSON and documented this H&P. The patient is a 47 year old M who presented with a patient stated chief complaint of [right ankle swelling]. Source of Information: patient Allergies/Medications Allergies: Coded Allergies: No Known Allergies (12/29/17) Past History Medical History Cardiovascular: hypertension, hyperlipidemia Past Family/Social History Psychosocial History Smoking Status: Never Smoked ETOH Use: denies use Illicit Drug Use: denies illicit drug use Review of Systems Review of Systems Constitutional: Reports: see HPI. Exam & Diagnostic Data Last 24 Hrs of Vital Signs/I&O Vital Signs Date Time Temp Pulse Resp B/P B/P Pulse O2 O2 Flow FiO2 Mean Ox Delivery Rate 12/30 0300 98.7 94 16 142/72 96 Room Air 12/30 0140 98.7 85 18 138/83 98 Room Air 12/29 2220 98.7 77 18 133/80 97 Room Air 12/29 2120 Room Air 12/29 2042 100.1 12/29 2041 100.1 12/29 1934 101.3 12/29 1934 101.3 12/30 1931 101.3 106 16 130/76 95 Room Air Intake & Output 12/30 0800 12/30 0000 12/29 1600 Intake Total 0 Output Total Balance 0 Intake, Oral 0 Patient 246 lb 230 lb Weight Weight Bed scale Reported by Patient Measurement Method Core Measures/Misc (02/05) Sepsis (View protocol) If YES complete Sepsis Event Note If YES complete Sepsis Event Note Attending MD Review Statement Attending Statement Attending MD Statement: examined this patient, discuss w/resident/PA/DETECTIVE INVESTIGATOR, amended to note Attending Assessment/Plan: This patient is a 47-year-old white male with a significant past medical history for hypertension, hyperlipidemia and right ankle fracture with hardware placement who presents to the emergency department with a several week history of progressive swelling of his right ankle. The patient states that the swelling in his right ankle has been occurring the last few weeks. Only recently has he noticed significant erythema and pain. The swelling has been unilateral to the right ankle. Upon evaluation in the emergency department the patient was found to have a temperature of 101.3, leukocytosis 21.7 (left shift bandemia 22), lactic acid 3.0, and right ankle x-ray demonstrated circumferential soft tissue swelling. The patient will be admitted for right ankle cellulitis rule out osteomyelitis. We will be placed on the Unasyn. Consider ID consult to help direct the course of therapy based on underlying diagnosis. Full code
[2017-12-30 03:00] VITALS: BP 142/72
[2017-12-30 06:00] VITALS: BP 142/64
[2017-12-30 09:00] LABS: ABSOLUTE BASOPHIL COUNT 0 /CUMM (0.0-0.2); ABSOLUTE EOSINOPHIL COUNT 0 /CUMM (0.0-0.7); ABSOLUTE GRANULOCYTE CT 14.5 /CUMM (1.4-6.5); ABSOLUTE LYMPH COUNT 0.7 /CUMM (1.2-3.4); ABSOLUTE MONOCYTE COUNT 1.2 /CUMM (0.10-0.60); BASOPHIL % 0 % (0.0-2.0); EOSINOPHIL % 0 % (0-5); GRANULOCYTE % 88.5 % (42.2-75.2); HEMATOCRIT 35.7 % (42-52); MEAN CORPUSCULAR HGB 26.9 PG (27.0-31.0); MEAN CORPUSCULAR VOLUME 79.2 FL (80.0-94.0); MEAN PLATELET VOLUME 9.4 FL (7.4-10.4); PLATELET COUNT 204 /CUMM (130-400); RBC DISTRIBUTION WIDTH 14.9 % (11.5-14.5)
[2017-12-30 11:02] LABS: WHITE BLOOD CELL COUNT 16.4 /CUMM (4.8-10.8)
[2017-12-30 14:27] VITALS: BP 140/90
[2017-12-30 21:00] VITALS: BP 152/92
--- NOTE | 2017-12-30 21:41 | PN- Att Addend ---
Attending Addendum Attending Brief Note 47M PMH HTN presenting with RLE cellulitis. Patient reports RLE warmth and tenderness going for a month and steadily progressing. Came to ER as he felt febrile, chills, diaphoresis, weakness, and malaise, describing it as being hit by a truck. His RLE has erythema, warmth, and tenderness from knee to calf, not involving foot. He appears ill and septic. He has hardware in his right ankle from a surgery 10+ years ago. Febrile 101 overnight, WBC 24 initially, down to 17, with 22% bands. Cultures negative. Reports pain that is mildly controlled by Tylenol, but would prefer to avoid opiates. 1. Sepsis secondary to RLE cellulitis Plan - Continue on general medicine - Continue Unasyn - Leg elevation - Follow cultures - Trend CBC - Continue home medications - DVT PPx
[2017-12-31 06:43] VITALS: BP 157/81
[2017-12-31 08:22] LABS: ABSOLUTE BASOPHIL COUNT 0 /CUMM (0.0-0.2); ABSOLUTE EOSINOPHIL COUNT 0 /CUMM (0.0-0.7); ABSOLUTE GRANULOCYTE CT 8.8 /CUMM (1.4-6.5); ABSOLUTE MONOCYTE COUNT 1.1 /CUMM (0.10-0.60); BASOPHIL % 0 % (0.0-2.0); EOSINOPHIL % 0.2 % (0-5); GRANULOCYTE % 80.2 % (42.2-75.2); HEMATOCRIT 35.5 % (42-52); MEAN CORPUSCULAR HGB 26.6 PG (27.0-31.0); MEAN CORPUSCULAR HGB CONC 33.4 G/DL (33.0-37.0); MEAN CORPUSCULAR VOLUME 79.8 FL (80.0-94.0); MEAN PLATELET VOLUME 9.1 FL (7.4-10.4); PLATELET COUNT 202 /CUMM (130-400); RBC DISTRIBUTION WIDTH 14.5 % (11.5-14.5); RED BLOOD CELL CT 4.44 /CUMM (4.70-6.10)
--- NOTE | 2017-12-31 10:22 | PN- Housestaff ---
Krunal LOCKHART,Beena 12/31/17 1006: Subjective Follow-up For: Cellulitis Subjective: Saw pt at bedside this AM. He had Tmax 102.6 a round 4:30 am. Otherwise he states he feels well, infact, even better than yesterday. He is on IV Unasyn w/ o side effect. He states that his leg feels better. Review of Systems Constitutional: Reports: chills, fever. Denies: weakness. EENTM: Reports: no symptoms. Cardiovascular: Denies: chest pain, palpitations. Respiratory: Reports: no symptoms. Gastrointestinal: Reports: no symptoms. Genitourinary: Reports: no symptoms. Musculoskeletal: Reports: no symptoms. Skin: Reports: erythema, rash. Objective Last 24 Hrs of Vital Signs/I&O Vital Signs Date Time Temp Pulse Resp B/P B/P Pulse O2 O2 Flow FiO2 Mean Ox Delivery Rate 12/31 0759 80 152/84 12/31 0643 98.5 84 20 157/81 100 Room Air 12/31 0627 98.5 12/31 0427 102.6 12/30 2100 99.4 86 16 152/92 96 Room Air 12/30 2046 99.4 12/30 1738 99.1 12/30 1549 101.1 12/30 1427 99.1 92 18 140/90 97 Room Air Intake & Output 12/31 1600 12/31 0800 12/31 0000 Intake Total 200 680 Output Total Balance 200 680 Intake, IV 200 200 Intake, Oral 480 Physical Exam General Appearance: Alert, Oriented X3, Cooperative, No Acute Distress Skin: RLE with erythema from khanna to knee. warm to touch HEENT: Atraumatic, PERRLA, EOMI Neck: Supple Cardiovascular: Regular Rate, Normal S1, Normal S2 Lungs: Normal Air Movement Abdomen: Soft, No Tenderness Extremities: erythema on RLE. Vascular: Normal Pulses Current Medications: Current Medications Sig/Abe Start time Last Medication Dose Route Stop Time Status Admin Acetaminophen 650 MG Q6P PRN 12/30 0345 AC 12/31 PO 0427 Acetaminophen 1,000 MG Q6P PRN 12/30 0345 AC 12/30 IV 1549 Amlodipine Besylate 10 MG DAILY 12/30 0900 AC 12/31 PO 0759 Ampicillin Sodium/ 3,000 MG Q6 12/30 1800 AC 12/31 Sulbactam Sodium IV 0629 Sodium Chloride 100 ML Ampicillin Sodium/ 3,000 MG Q6H 12/30 929 DC 12/30 Sulbactam Sodium IV 1112 Sodium Chloride 100 ML Aspirin 81 MG DAILY 12/30 899 AC 12/31 PO 075 Heparin Sodium 5,000 UNIT Q8 12/30 599 AC (Porcine) SC Ketorolac 30 MG ONCE ONE 12/31 043 DC 12/31 Tromethamine IV 12/31 430 042 Ketorolac 0 .STK-MED ONE 12/31 426 DC Tromethamine .ROUTE Ketorolac 0 .STK-MED ONE 12/30 1924 DC Tromethamine .ROUTE Ketorolac 30 MG ONCE ONE 12/30 1899 DC 12/30 Tromethamine IV 12/30 Losartan Potassium 100 MG DAILY 12/30 899 AC 12/31 PO 075 Tramadol HCl 50 MG Q4 12/30 1845 DC PO Last 24 Hrs of Lab/Jermaine Results Last 24 Hrs of Labs/Mics: Laboratory Tests 12/31/17729: CBC w Diff NO MAN DIFF REQ, RBC 4.44 L, MCV 79.8 L, MCH 26.6 L, MCHC 33.4, RDW 14.5, MPV 9.1, Gran % 80.2 H, Lymphocytes % 9.3 L, Monocytes % 10.3 H, Eosinophils % 0.2, Basophils % 0, Absolute Granulocytes 8.8 H, Absolute Lymphocytes 1.0 L, Absolute Monocytes 1.1 H, Absolute Eosinophils 0, Absolute Basophils 0 Assessment/Plan Assessment: This is a 47 yo male with PMH of HTN, CAD, hyperlipidemia, RLE ankle surgery with hardware placement (5-10 yrs ago) who comes in for CC of tender, erythematous and warm RLE. He was dx with cellulitis and treated with IV antibiotics (Unasyn). Overnight he had fever of 102.4, but otherwise normatensive/hypertensive. His WBC has trended down from 21.7 to 11.0 today. PLAN: 1. Cellulitis: He was started on IV unasyn and seems to be responding well to it. There is concern for possible infection of hardware given that xray of ankle showed some soft tissue swelling. On physical exam today he seemed to be improving on Unasyn. * Consider ID consult * Con't Unasyn as he has good response * BCX NGTD * Con't monitor for fever 2. CAD: * Con't Statin * Con't ASA 81 3. HTN: * Con't Amlodipine 10mg * Con't Losartan 100mg daily Problem List: 1. Hypertension 2. Cellulitis Pain Ratin Pain Location: RLE Pain Goal: Remain pain free Pain Plan: current reg Tomorrow's Labs & Rationales: cbc bep Silas Hendricks MD 12/31/17 1738: Attending MD Review Statement Attending Statement Attending MD Statement: examined this patient, discuss w/resident/PA/PHYSICIAN ASSISTANT PSYCHIATRY, agreed w/resident/PA/PHYSICIAN ASSISTANT PSYCHIATRY, reviewed EMR data (avail) Attending Assessment/Plan: 47M PMH HTN presenting with RLE cellulitis. Patient reports RLE warmth and tenderness going for a month and steadily progressing. Came to ER as he felt febrile, chills, diaphoresis, weakness, and malaise, describing it as being hit by a truck. His RLE has erythema, warmth, and tenderness from knee to calf, not involving foot. He appears ill and septic. He has hardware in his right ankle from a surgery 10+ years ago. WBC 24 initially, with 22% bands. Cultures negative. Reports pain that is mildly controlled by Tylenol, but would prefer to avoid opiates. Erythema unchanged today. Tmax 102. Patient feels a bit better. WBC continues to improve, now 11. Cultures NGTD. 1. Sepsis secondary to RLE cellulitis Plan - Continue on general medicine - Continue Unasyn. If no clinical improvement will consider changing tomorrow. - Start Toradol 30mg IV q6h PRN for pain - Leg elevation - Follow cultures - Trend CBC - Continue home medications - DVT PPx
[2017-12-31 14:20] VITALS: BP 142/90
[2017-12-31 20:45] VITALS: BP 150/100
--- NOTE | 2018-01-01 06:36 | PN- Housestaff ---
Modesto Han 01/01/18 0635: Subjective Follow-up For: Cellulitis Possible osteomyelitis Hypertension Subjective: I visited the patient in the morning, he was lying back in his bed, alert and oriented 3, in no acute distress. He had complaints of sweating and chills overnight. No high temperature was reported from last night. Yesterday he had a fever of 102.3. He believes that the lower extremity cellulitis is improving. He reports that he had swollen lymph nodes in right groin on admission, which is not swollen anymore but tender. Review of Systems Constitutional: Reports: see HPI. Objective Last 24 Hrs of Vital Signs/I&O Vital Signs Date Time Temp Pulse Resp B/P B/P Pulse O2 O2 Flow FiO2 Mean Ox Delivery Rate 01/01 1407 98.1 80 18 132/86 97 Room Air 01/01 0836 90 144/88 01/01 0835 90 144/88 01/01 0749 99.0 01/01 0659 99.2 86 20 140/90 97 Room Air 12/31 2045 98.9 90 16 150/100 97 Room Air Intake & Output 01/01 1600 01/01 0800 01/01 0000 Intake Total 720 220 580 Output Total Balance 720 220 580 Intake, IV 100 100 Intake, Oral 720 120 480 Physical Exam General Appearance: Alert, Oriented X3, Cooperative, No Acute Distress Skin: No Rashes Skin Temp/Moisture Exam: Warm/Dry Sepsis Skin Exam (color): Normal for Ethnicity HEENT: Atraumatic Neck: Supple, No JVD Lymphatic: Axillary nl, Cervical nl, Tender groin lymph nodes Cardiovascular: Regular Rate, Normal S1, Normal S2 Lungs: Clear to Auscultation, Normal Air Movement Abdomen: Normal Bowel Sounds, Soft, No Tenderness, No Hepatospenomegaly, No Masses Neurological: Normal Speech, Strength at 5/5 X4 Ext, Normal Tone, Sensation Intact Extremities: No Clubbing, No Cyanosis, No Edema, Normal Pulses, Cellulitis in RLE (calf) Vascular: Normal Pulses, Pulses Symmetrical Sepsis Peripheral Pulse Location: Dorsalis Pedis Sepsis Peripheral Pulse Exam: Normal Sepsis Cap Refill Exam: <2 Sec Assessment/Plan Assessment: This is a 47 yo male with PMH of HTN, CAD, hyperlipidemia, RLE ankle surgery with hardware placement (5-10 yrs ago) who comes in for CC of tender, erythematous and warm RLE. He was dx with cellulitis and treated with IV antibiotics (Unasyn). Overnight he had fever of 102.4, but otherwise normatensive/hypertensive. His WBC has trended down from 21.7 to 11.0, and 9.3 today. Doppler ultrasound of lower extremities was done which did not show DVT. Borders of the cellulitis were marked out for close follow-up of improvement. Cellulitis: He was started on IV unasyn and seems to be responding well to it. There is concern for possible infection of hardware given that xray of ankle showed some soft tissue swelling. On physical exam today he seemed to be improving on Unasyn. Plan: Consider ID consult, Con't Unasyn as he has good response, BCX NGTD, Con't monitor for fever CAD: Patient is stable regarding CAD, with no chest pain reported. Plan: Con't Statin, Con't ASA 81 HTN: Blood pressure is not controlled Plan: Con't Amlodipine 10mg, Con't Losartan 100mg daily Problem List: 1. Cellulitis Pain Ratin Pain Location: RLE Pain Goal: Pain 4 or less Pain Plan: IV antibiotics Acetaminophen As needed pain medication Tomorrow's Labs & Rationales: Not applicable Juan Stein MD 01/01/18 2200: Attending MD Review Statement Attending Statement Attending MD Statement: examined this patient, discuss w/resident/PA/PACKER INSPECTOR, agreed w/resident/PA/PACKER INSPECTOR, reviewed EMR data (avail), discussed with nursing, discussed with case mgmt, amended to note Attending Assessment/Plan: The patient was seen and discussed with house staff. Agree with plan of care as outlined. US negative for DVT. Continue IV antibiotics.
[2018-01-01 06:59] VITALS: BP 140/90
--- NOTE | 2018-01-01 08:15 | Sepsis Event Note ---
Sepsis Event Note Severe Sepsis Severe Sepsis Present: Yes Severe Sepsis Actions Taken: Blood Cultures x2, Lactic Acid x2, IV Broad Spectrum Abx, IV Fluids- NS or LR Septic Shock Septic Shock Present: No Sepsis Focused Exam Sepsis Cardiac Exam: Tachycardia Sepsis Resp Exam: CTA Sepsis Cap Refill Exam: <2 Sec Sepsis Peripheral Pulse Exam: Normal Sepsis Peripheral Pulse Location: Radial Sepsis Skin Exam (color): Normal for Ethnicity Skin Temp/Moisture Exam: Warm/Dry
[2018-01-01 08:56] LABS: ABSOLUTE BASOPHIL COUNT 0 /CUMM (0.0-0.2); ABSOLUTE EOSINOPHIL COUNT 0.1 /CUMM (0.0-0.7); ABSOLUTE GRANULOCYTE CT 7.1 /CUMM (1.4-6.5); ABSOLUTE LYMPH COUNT 0.9 /CUMM (1.2-3.4); ABSOLUTE MONOCYTE COUNT 1.2 /CUMM (0.10-0.60); BASOPHIL % 0.1 % (0.0-2.0); EOSINOPHIL % 0.8 % (0-5); GRANULOCYTE % 76.5 % (42.2-75.2); HEMATOCRIT 35.4 % (42-52); MEAN CORPUSCULAR HGB 26.8 PG (27.0-31.0); MEAN PLATELET VOLUME 8.8 FL (7.4-10.4); PLATELET COUNT 216 /CUMM (130-400); RBC DISTRIBUTION WIDTH 14.3 % (11.5-14.5); RED BLOOD CELL CT 4.49 /CUMM (4.70-6.10); WHITE BLOOD CELL COUNT 9.3 /CUMM (4.8-10.8)
--- NOTE | 2018-01-01 12:44 | ULTRASOUND REPORT ---
EXAMINATION: US TRIPLEX LOWER EXTREMITY, RIGHT CLINICAL INFORMATION: Right leg swelling COMPARISON: CT abdomen pelvis 12/29/2017 TECHNIQUE: Color-flow triplex imaging with spectral analysis and compression Doppler were performed on the lower extremity. FINDINGS: Respiratory variation, normal compression and augmented flow are noted throughout the lower extremity. The visualized common femoral vein, superficial femoral vein, profunda femoral vein, popliteal vein and midcalf peroneal and posterior tibial venous segments show no evidence of deep venous thrombosis. There is no Benitez's cyst. Multiple enlarged lymph nodes are noted in the groin largest which measures 4.1 cm in greatest length axial measurement is 1.27 cm. This was partially imaged on the CT scan. IMPRESSION: No evidence of deep venous thrombosis involving the lower extremity. Right groin lymphadenopathy as described above.
[2018-01-01 14:07] VITALS: BP 132/86
[2018-01-01 21:40] VITALS: BP 160/102
--- NOTE | 2018-01-02 06:36 | PN- Housestaff ---
[place] Han 01/02/18 0635: Subjective Follow-up For: Cellulitis Possible osteomyelitis Hypertension Subjective: I visited the patient's morning, he was sitting on his bed, alert and oriented 3. In no acute distress. He had complaints of sweating and chills overnight. He believes that there is no improvement in the cellulitis. The highest fever was 99.2 overnight. He was asking when ID is going to visit him. Review of Systems Constitutional: Reports: see HPI. Objective Last 24 Hrs of Vital Signs/I&O Vital Signs Date Time Temp Pulse Resp B/P B/P Pulse O2 O2 Flow FiO2 Mean Ox Delivery Rate 01/02 1414 98.2 76 18 138/88 97 Room Air 01/02 0847 78 148/94 01/02 0846 78 148/94 01/02 0732 98.1 75 18 150/90 97 Room Air 01/01 2238 98.6 01/01 2140 98.2 85 18 160/102 95 Room Air 01/01 2020 99.8 Intake & Output 01/02 1600 01/02 0800 01/02 0000 Intake Total 850 260 800 Output Total Balance 850 260 800 Intake, IV 130 260 Intake, Oral 720 800 Physical Exam General Appearance: Alert, Oriented X3, Cooperative, No Acute Distress Skin: No Rashes Skin Temp/Moisture Exam: Warm/Dry Sepsis Skin Exam (color): Normal for Ethnicity HEENT: Atraumatic, PERRLA Neck: Supple, No JVD Cardiovascular: Regular Rate, Normal S1, Normal S2 Lungs: Clear to Auscultation, Normal Air Movement Extremities: Minimal improvement in cellulitis on RLE Assessment/Plan Assessment: This is a 47 yo male with PMH of HTN, CAD, hyperlipidemia, RLE ankle surgery with hardware placement (5-10 yrs ago) who comes in for CC of tender, erythematous and warm RLE. He was dx with cellulitis and treated with IV antibiotics (Unasyn). Overnight he had fever of 102.4, but otherwise normatensive/hypertensive. His WBC has trended down from 21.7 to 11.0, and 9.3 today. Doppler ultrasound of lower extremities was done which did not show DVT. Borders of the cellulitis were marked out for close follow-up of improvement. Which showed minimal improvement. Cellulitis: He was started on IV unasyn and seems to be responding well to it. There is concern for possible infection of hardware given that xray of ankle showed some soft tissue swelling. On physical exam today he seemed to be improving on Unasyn. Plan: Con't Unasyn as he has good response, BCX NGTD, Con't monitor for fever. ID saw the patient and suggested to continue IV Unasyn, elevation of left lower extremity. And compression stocking. CAD: Patient is stable regarding CAD, with no chest pain reported. Plan: Con't Statin, Con't ASA 81 HTN: Blood pressure is not controlled Plan: Con't Amlodipine 10mg, Con't Losartan 100mg daily Problem List: 1. Cellulitis 2. Hypertension Pain Ratin Pain Location: Right lower extremity Pain Goal: Pain 4 or less Pain Plan: IV antibiotics Acetaminophen As needed pain medication Tomorrow's Labs & Rationales: Not applicable Juan Stein MD 01/02/18 1557: Attending MD Review Statement Attending Statement Attending MD Statement: examined this patient, discuss w/resident/PA/ENTERTAINER & COMIC, agreed w/resident/PA/ENTERTAINER & COMIC, reviewed EMR data (avail), discussed with nursing, discussed with case mgmt, amended to note Attending Assessment/Plan: The patient was seen and discussed with house staff. Appreciate ID input. Slow improvement in RLE cellulitis. Will continue IV Unasyn today.
[2018-01-02 07:32] VITALS: BP 150/90
--- NOTE | 2018-01-02 08:10 | Discharge Summary ---
Visit Information Visit Dates Admission Date: 12/30/17 Discharge Date: 01/03/2018 Hospital Course Course Attending Physician: Juan Stein MD Primary Care Physician: Patient Has No Primary Care Dr Hospital Course: This is a 47 yo male with PMH of HTN, CAD, hyperlipidemia, RLE ankle surgery with hardware placement (5-10 yrs ago) who comes in for CC of tender, erythematous and warm RLE. He was dx with cellulitis and treated with IV antibiotics (Unasyn). Overnight he had fever of 102.4, but otherwise normatensive/hypertensive. His WBC has trended down from 21.7 to 11.0, and 9.3 today. Doppler ultrasound of lower extremities was done which did not show DVT. Borders of the cellulitis were marked out for close follow-up of improvement. He is discharged on p.o. Augmentin for 5 more days based on consult with ID. Cellulitis: He was started on IV unasyn and seems to be responding well to it. There is concern for possible infection of hardware given that xray of ankle showed some soft tissue swelling. On physical exam today he seemed to be improving on Unasyn. Plan: Consider ID consult, Con't Unasyn as he has good response, BCX NGTD, Con't monitor for fever CAD: Patient is stable regarding CAD, with no chest pain reported. Plan: Con't Statin, Con't ASA 81 HTN: Blood pressure is not controlled Plan: Con't Amlodipine 10mg, Con't Losartan 100mg daily Allergies: Coded Allergies: No Known Allergies (12/29/17) Significant Procedures: EXAM TYPE: US - US-UNILATERAL VENOUS DOPPLER EXAMINATION: US TRIPLEX LOWER EXTREMITY, RIGHT CLINICAL INFORMATION: Right leg swelling COMPARISON: CT abdomen pelvis 12/29/2017 TECHNIQUE: Color-flow triplex imaging with spectral analysis and compression Doppler were performed on the lower extremity. FINDINGS: Respiratory variation, normal compression and augmented flow are noted throughout the lower extremity. The visualized common femoral vein, superficial femoral vein, profunda femoral vein, popliteal vein and midcalf peroneal and posterior tibial venous segments show no evidence of deep venous thrombosis. There is no Benitez's cyst. Multiple enlarged lymph nodes are noted in the groin largest which measures 4.1 cm in greatest length axial measurement is 1.27 cm. This was partially imaged on the CT scan. IMPRESSION: No evidence of deep venous thrombosis involving the lower extremity. Right groin lymphadenopathy as described above. Pertinent Lab Results: negative blood cultures x 2 Disposition Summary Disposition Principal Diagnosis: RLE cellulitis Additional Diagnosis: Possible osteomyelitis CAD Hypertension Discharge Disposition: home or self care Discharge Instructions General Discharge Information Code Status: Full Code Patient's Diet: Heart healthy diet Patient's Activity: as tolerated Follow-Up Instructions/Appts: Please follow up with your PCP Please take your antibiotics on time till you have completed the course Please call you PCP if you have any fever, chills, sweating, or notice any worsening of your leg swelling Medications at Discharge Discharge Medications: Stop taking the following medications: Atorvastatin Calcium (Atorvastatin Calcium) 40 MG TABLET ORAL 5 PM Qty = 90 Continue taking these medications: Amlodipine Besylate (Amlodipine Besylate) 10 MG TABLET 1 Tablet ORAL DAILY Qty = 30 Comments: Last Taken:01/03/18 Time: 8:25 AM Losartan (Cozaar) 100 MG TABLET 1 Tablet ORAL DAILY Qty = 30 Comments: Last Taken: 01/03/18 Time: 8:25 AM Nitroglycerin (Nitrostat) 0.4 MG TAB.SUBL 1 Tablet SUBLINGUAL As Directed Qty = 30 Instructions: 1st sign of attack; may repeat every 5 minutes until relief; if pain persists after 3 tablets in 15 minutes. Comments: NOT GIVEN IN HOSPITAL. Aspirin (Aspirin*) 81 MG TAB.CHEW 81 Milligram ORAL DAILY Qty = 90 Instructions: . Comments: Last Taken: 01/03/18 Time: 08:25 AM Start taking the following new medications: Amoxicillin/Potassium Clav (Augmentin 875-125 Tablet) 875 MG-125 MG TABLET 875 Milligram ORAL EVERY 12 HOURS Qty = 12 No Refills Instructions: Please take on tablet every 12 hours til the course is complete. Copies To: Sasha Bella DO, MD,Felix Stark Attending MD Review Statement Documenting Attending: Juan Stein MD Other Findings: The patient was seen and discussed with house staff. OK to discharge today on po Augmentin. Will refer as OP to vascular for evaluation for chronic edema. Needs to establish new PCP and wishes office to be close to Dr. Rubio's (given Dr. Bella's name to establish care).
--- NOTE | 2018-01-02 08:14 | Patient Discharge Instructions ---
Discharge Instructions General Discharge Information You were seen/treated for: Cellulitis Possible osteomyelitis CAD Hypertension Watch for these problems: Fever, chills, sweating increased swelling in your leg increased pain or tightness in your leg Special Instructions: Please follow up with your PCP Please follow-up with vascular surgeon Please call your PCP if you have worsening swelling, pain, tenderness in your right leg Diet Continue normal diet: Yes Recommended Diet: Heart Healthy Activity Full Activity/No Limits: No Activity Self Limited: Yes Acute Coronary Syndrome Inclusion Criteria At DC or during hospital stay patient has or had the following: ACS DIAGNOSIS No Discharge Core Measures Meds if any: Prescribed or Continued at Discharge Meds if any: NOT Prescribed or Continued at Discharge Congestive Heart Failure Inclusion Criteria At DC or during hospital stay patient has or had the following: CHF DIAGNOSIS No Discharge Core Measures Meds if any: Prescribed or Continued at Discharge Meds if any: NOT Prescribed or Continued at Discharge Cerebrovascular accident Inclusion Criteria At DC or during hospital stay patient has or had the following: CVA/TIA Diagnosis No Discharge Core Measures Meds if any: Prescribed or Continued at Discharge Meds if any: NOT Prescribed or Continued at Discharge Venous thromboembolism Inclusion Criteria VTE Diagnosis No VTE Type NONE VTE Confirmed by (Test) NONE Discharge Core Measures - Per Current guidelines, there needs to be overlap - treatment for the first 5 days of Warfarin therapy. - If discharged on Warfarin prior to 5 days of - overlap therapy, the patient will need to be - assessed for post discharge needs including - *Post discharge parental anticoagulation - *Warfarin and/or parental anticoagulation education - *Follow up date to check INR post discharge At least 5 days overlap therapy as Inpatient No Meds if any: Prescribed or Continued at Discharge Note: Overlap Therapy is Warfarin and Anticoagulant Meds if any: NOT Prescribed or Continued at Discharge
[2018-01-02 14:14] VITALS: BP 138/88
--- NOTE | 2018-01-02 15:09 | Cons- Infect Disease ---
General Information and HPI Consulting Request Date of Consult: 01/02/18 Requested By: Juan Stein MD Reason for Consult: Cellulitis of the right lower extremity Source of Information: patient History of Present Illness: This is a 47-year-old man with a history of hypertension, status post right ankle fracture/ORIF 10 years prior to admission after a fall, with the development of right lower extremity swelling 1 month prior to admission, admitted on December 29 with a one day history of erythema and pain in the right lower extremity associated with weakness, chills and diaphoresis. On admission he was febrile to 101.3. Laboratory data revealed a white blood cell of 22,000, with 71 segs and 22 bands, glucose 111, BUN/creatinine 16 and 1.3, lactic acid 2.2, with normal liver enzymes. Urinalysis 1-3 RBC/1-[address] of the abdomen and pelvis was negative. Chest x-ray was negative. He was begun on Unasyn, with gradual defervescence and normalization of his white blood cell count; however he continues to complain of right leg pain. Allergies/Medications Allergies: Coded Allergies: No Known Allergies (12/29/17) Home Med List: Amlodipine Besylate 10 MG TABLET 1 TAB PO DAILY HTN Aspirin (Aspirin*) 81 MG TAB.CHEW 81 MG PO DAILY CAD . Losartan (Cozaar) 100 MG TABLET 1 TAB PO DAILY HTN Nitroglycerin (Nitrostat) 0.4 MG TAB.SUBL 1 TAB SL AD chest pain 1st sign of attack; may repeat every 5 minutes until relief; if pain persists after 3 tablets in 15 minutes. 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 History of MRSA: No History of VRE: No History of CDIFF: No Isolation History: Standard Surgical History Surgical History: RIGHT ANKLE SURGERY/SCREW L ROTATOR CUFF Psychosocial History Services at Home: None Smoking Status: Never Smoked ETOH Use: denies use Illicit Drug Use: denies illicit drug use Review of Systems Review of Systems All Other Systems: Reviewed and Negative Exam & Diagnostic Data Last 24 Hrs of Vital Signs/I&O Vital Signs Date Time Temp Pulse Resp B/P B/P Pulse O2 O2 Flow FiO2 Mean Ox Delivery Rate 01/02 1414 98.2 76 18 138/88 97 Room Air 01/02 0847 78 148/94 01/02 0846 78 148/94 01/02 0732 98.1 75 18 150/90 97 Room Air 01/01 2238 98.6 01/01 2140 98.2 85 18 160/102 95 Room Air 01/01 2020 99.8 Intake & Output 01/02 1600 01/02 0800 01/02 0000 Intake Total 850 260 800 Output Total Balance 850 260 800 Intake, IV 130 260 Intake, Oral 720 800 Physical Exam Other Physical Findings: He is awake and alert in no acute distress. He is afebrile. Skin reveals no rash. HEENT exam is negative. Neck is supple with no adenopathy. Lungs are clear. Heart regular rhythm with no murmur. Abdomen is soft, nontender with positive bowel sounds. Back no CVA tenderness. Extremities right leg edema, mild erythema, warmth and mild tenderness on palpation; well-healed scar on the right medial malleolus with no surrounding inflammation. Neuro is without focality. Last 24 Hours of Lab Results: Laboratory Tests 01/01 0715 Chemistry Sodium (137 - 145 mmol/L) 136 L Potassium (3.5 - 5.1 mmol/L) 3.7 Chloride (98 - 107 mmol/L) 99 Carbon Dioxide (22 - 30 mmol/L) 28 Anion Gap (5 - 16) 10 BUN (9 - 20 mg/dL) 12 Creatinine (0.7 - 1.2 mg/dL) 1.1 Estimated GFR (>60 ml/min) > 60 BUN/Creatinine Ratio (7 - 25 %) 10.9 Hematology CBC w Diff NO MAN DIFF REQ WBC (4.8 - 10.8 /CUMM) 9.3 RBC (4.70 - 6.10 /CUMM) 4.49 L Hgb (14.0 - 18.0 G/DL) 12.0 L Hct (42 - 52 %) 35.4 L MCV (80.0 - 94.0 FL) 79.0 L MCH (27.0 - 31.0 PG) 26.8 L MCHC (33.0 - 37.0 G/DL) 34.0 RDW (11.5 - 14.5 %) 14.3 Plt Count (130 - 400 /CUMM) 216 MPV (7.4 - 10.4 FL) 8.8 Gran % (42.2 - 75.2 %) 76.5 H Lymphocytes % (20.5 - 51.1 %) 9.6 L Monocytes % (1.7 - 9.3 %) 13.0 H Eosinophils % (0 - 5 %) 0.8 Basophils % (0.0 - 2.0 %) 0.1 Absolute Granulocytes (1.4 - 6.5 /CUMM) 7.1 H Absolute Lymphocytes (1.2 - 3.4 /CUMM) 0.9 L Absolute Monocytes (0.10 - 0.60 /CUMM) 1.2 H Absolute Eosinophils (0.0 - 0.7 /CUMM) 0.1 Absolute Basophils (0.0 - 0.2 /CUMM) 0 Last 24 Hours of Jermaine Results: Blood cultures 2 December 29 negative Diagnostic Data Recent Imaging Findings: Chest x-ray December [address] of the abdomen and pelvis December 29 negative X-ray of the right ankle December 30 reveals 2 intact cannulated screws in the medial malleolus, with no acute osseous abnormality and with circumferential soft tissue swelling Doppler of the right lower extremity January 01 negative Assessment/Plan Assessment/Plan Impression: This is a 47-year-old man, status post right ankle fracture/ORIF 10 years prior to admission, with the development of right lower extremity swelling 1 month prior to admission, admitted on December 29 with a one day history of erythema and pain in the right lower extremity associated with weakness, chills and diaphoresis, found to be febrile with a leukocytosis, treated with Unasyn, with defervescence and normalization of his white blood cell count. His clinical picture is consistent with a cellulitis of the right lower extremity, and he appears to have improved on Unasyn, now Day 4 of treatment. The etiology of his right lower extremity edema is unclear, as he states this developed approximately 1 month prior to admission, but this presumably placed him at increased risk for cellulitis. I do not suspect any involvement of his hardware and, given his improvement, do not feel that further evaluation for underlying osteomyelitis is indicated. Suggestion: 1. Continue elevation of the right lower extremity 2. Consider a compression stocking for the right lower extremity 3. Vascular surgery evaluation if his right lower extremity edema persists (can do as outpatient) 4. Continue Unasyn but, if he continues to improve, can change to Augmentin 875 mg p.o. every 12 hours for 3 more days Consult Acknowledgment - Thank you for your consult request.
[2018-01-02 21:04] VITALS: BP 150/100
[2018-01-03 06:31] VITALS: BP 146/88
--- NOTE | 2018-01-03 06:51 | PN- Housestaff ---
[place] Han 01/03/18 0651: Subjective Follow-up For: Cellulitis Possible osteomyelitis Hypertension Obesity Subjective: I visited the patient this morning, he was sleeping in his bed, woke him up. He was in no acute distress, alert and oriented 3. He had no complaints of fever, chills, or sweating overnight. He believes that the pain and tenderness in his right lower extremity has reduced. He can tolerate walking on his right foot. No major complaints of chest pain, abdominal pain, shortness of breath, lightheadedness, dizziness, nausea, vomiting, or dysuria. No event was reported from the nurse overnight. Recommend him to use compression stocking, while duties at work, to reduce the edema in lower extremity based on Dr. Germain recommendations. And also to visit a vascular surgeon for the right sided lower extremity swelling. Review of Systems Constitutional: Reports: see HPI. Objective Last 24 Hrs of Vital Signs/I&O Vital Signs Date Time Temp Pulse Resp B/P B/P Pulse O2 O2 Flow FiO2 Mean Ox Delivery Rate 01/03 08 76 146/94 01/03 0825 76 146/94 01/03 0631 98.3 80 20 146/88 98 Room Air 01/02 2104 98.2 75 16 150/100 98 Room Air Intake & Output 01/03 1600 01/03 0800 01/03 0000 Intake Total 200 840 Output Total Balance 200 840 Intake, IV 200 120 Intake, Oral 720 Number 0 Bowel Movements Physical Exam General Appearance: Alert, Oriented X3, Cooperative, No Acute Distress Skin: No Rashes Skin Temp/Moisture Exam: Warm/Dry Sepsis Skin Exam (color): Normal for Ethnicity HEENT: Atraumatic Cardiovascular: Regular Rate, Normal S1, Normal S2 Lungs: Clear to Auscultation, Normal Air Movement Abdomen: Normal Bowel Sounds, Soft, No Tenderness Extremities: Cellulitis on right leg, improving Assessment/Plan Assessment: This is a 47 yo male with PMH of HTN, CAD, hyperlipidemia, RLE ankle surgery with hardware placement (5-10 yrs ago) who comes in for CC of tender, erythematous and warm RLE. He was dx with cellulitis and treated with IV antibiotics (Unasyn). Overnight he had fever of 102.4, but otherwise normatensive/hypertensive. His WBC has trended down from 21.7 to 11.0, and 9.3 today. Doppler ultrasound of lower extremities was done which did not show DVT. Borders of the cellulitis were marked out for close follow-up of improvement. He will be discharged on p.o. Augmentin for 5 more days based on consult with ID. Cellulitis: He was started on IV unasyn and seems to be responding well to it. There is concern for possible infection of hardware given that xray of ankle showed some soft tissue swelling. On physical exam today he seemed to be improving on Unasyn. Plan: Consider ID consult, Con't Unasyn as he has good response, BCX NGTD, Con't monitor for fever CAD: Patient is stable regarding CAD, with no chest pain reported. Plan: Con't Statin, Con't ASA 81 HTN: Blood pressure is not controlled Plan: Con't Amlodipine 10mg, Con't Losartan 100mg daily Problem List: 1. Cellulitis 2. Hypertension 3. Obesity Pain Ratin Pain Location: Right lower extremity Pain Goal: decrease Pain Plan: Antibiotics to decrease the inflammation control the pain Tylenol Tomorrow's Labs & Rationales: Not applicable Juan Stein MD 01/03/182055: Attending MD Review Statement Attending Statement Attending MD Statement: examined this patient, discuss w/resident/PA/FINANCIAL SUPERVISOR, agreed w/resident/PA/FINANCIAL SUPERVISOR, discussed with family, reviewed EMR data (avail), discussed with nursing, discussed with case mgmt, amended to note Attending Assessment/Plan: The patient was seen and discussed with house staff. Significant improvement in erythema today. OK to discharge to home on po Augmentin. To establish new PCP (? Dr. Bella) and refer to vascular for OP evaluation.
[2018-01-03] MEDS ORDERED: AUGMENTIN 875-1 EACH PO ×3 (07:53→12:15)
[2018-01-03 08:25] VITALS: BP 146/94
--- NOTE | 2018-01-03 11:19 | PN- Infect Dx ---
Subjective Subjective: Afebrile. He notes improvement in his right leg pain. Objective Last 24 Hrs of Vital Signs/I&O Vital Signs Date Time Temp Pulse Resp B/P B/P Pulse O2 O2 Flow FiO2 Mean Ox Delivery Rate 01/03 825 76 146/94 01/03 0825 76 146/94 01/03 0631 98.3 80 20 146/88 98 Room Air 01/02 2104 98.2 75 16 150/100 98 Room Air 01/02 1414 98.2 76 18 138/88 97 Room Air Intake & Output 01/03 1600 01/03 0800 01/03 0000 Intake Total 200 840 Output Total Balance 200 840 Intake, IV 200 120 Intake, Oral 720 Number 0 Bowel Movements Physical Exam Other Physical Findings: He appears comfortable in no acute distress Extremities right leg erythema and edema persist, mildly tender to palpation Results Last 24 Hours of Lab Results: No labs from today Last 24 Hours of Jermaine Results: Blood cultures December 29 negative Assessment/Plan ID Impression: Overall improved, with his temperatures and white blood cell count remaining normal, on Unasyn, Day 5 of treatment for a right lower extremity cellulitis. The history of right leg edema for 1 month before the onset of erythema and pain is of interest and suggests the need for possible vascular surgery evaluation. Suggestion: 1. Continue elevation of the right lower extremity 2. Compression stockings once his inflammation has resolved 3. Vascular surgery evaluation as an outpatient if his right lower extremity edema persist 4. Continue Unasyn, with change to Augmentin 875 mg p.o. every 12 hours, upon discharge, to complete a 10 day course of treatment
== END 2018-01-03 13:42 | DRG 603 ==
LOC: ERH 18:47 → 2NB 12-30 00:36 → ERHI 12-30 00:36 → ENRESERV 12-30 02:18 → 2NB 12-30 03:06 → ENPENDDIS 01-03 12:19 → 2NB 01-03 13:42
PROVIDERS: Emergency Medicine; Student in an Organized Health Care Education/Training Program
DX: L03.115 Cellulitis of right lower limb (principal); E87.2 Acidosis; Z68.41 Body mass index [BMI] 40.0-44.9, adult; E66.9 Obesity, unspecified; I10 Essential (primary) hypertension; E78.5 Hyperlipidemia, unspecified; I25.10 Atherosclerotic heart disease of native coronary artery without angina pectoris; Z87.81 Personal history of (healed) traumatic fracture
CPT/HCPCS: 2NBP; 36592; 71046; 73600-RT; 74177; 81001; 82436; 87040; 93005; 93010; 96360; 96361; J0131; J0690; J1644; J1885; J3490